=== PATIENT | male | born 1945 | race Caucasian/White ===

== ENCOUNTER 2017-06-04 13:53 | Emergency (ER) | payer MEDICARE ==
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
[2017-06-04] MEDS ORDERED: SODIUM CHLORIDE 0.9% 1,000 ML IV STA (14:14)
[2017-06-04] MEDS ORDERED: SODIUM CHLORIDE 0.9% 500 ML IV STA (14:14)
[2017-06-04 14:22] VITALS: RESP 18
[2017-06-04 14:42] LABS: Basophils # (A) 0.1 k/uL (0-0.2); Basophils % (A) 1 %; CH 32.2; CHCM 35.5; Eosinophils # (A) 0.2 k/uL (0-0.7); Eosinophils % (A) 2 %; HCT 42.4 % (39.0-53.0); HDW 2.72; HGB 14.9 gm/dL (13.0-17.5); Luc # (Auto) 0.18; Luc % (Auto) 2; Lymphocytes # (A) 2.4 k/uL (1.0-4.8); Lymphocytes % (A) 26 %; MCHC 35.1 g/dL (31.0-37.0); MCV 91.2 fL (80.0-100.0); Mean Platelet Volume 7.9; Monocytes # (A) 0.6 k/uL (0-1.0); Monocytes % (A) 6 %; Neutrophils # (A) 5.9 k/uL (1.3-7.7); Neutrophils % (A) 63 %; RBC 4.65 m/uL (4.30-5.90); RDW 13.8 % (11.5-15.5); WBC 9.4 k/uL (3.8-10.6); WBC (Perox) 9.12
[2017-06-04 14:52] LABS: Prothrombin Time 10.1 sec (9.0-12.0)
[2017-06-04 14:59] LABS: ALT 20 U/L (21-72); AST 19 U/L (17-59); Alkaline Phosphatase 80 U/L (38-126); Anion Gap 11 mmol/L; Blood Urea Nitrogen 27 mg/dL (9-20); Calcium 9.5 mg/dL (8.4-10.2); Carbon Dioxide 25 mmol/L (22-30); Chloride 106 mmol/L (98-107); Glucose 132 mg/dL (74-99); Non-African American GFR(MDRD) >60 (>60 ml/min/1.73 sqM); Potassium 4.5 mmol/L (3.5-5.1); Sodium 142 mmol/L (137-145); Total Bilirubin 0.6 mg/dL (0.2-1.3); Total Protein 7.3 g/dL (6.3-8.2)
[2017-06-04 15:01] LABS: Creatine Kinase 20 U/L (55-170)
--- NOTE | 2017-06-04 15:02 | XR ---
EXAMINATION TYPE: XR chest 2V DATE OF EXAM: 06/04/2017 COMPARISON: 08/04/2014 HISTORY: Shortness of breath TECHNIQUE: Frontal and lateral views of the chest are obtained. FINDINGS: Scattered senescent parenchymal changes noted. Hyperinflation compatible with COPD. No evidence for infiltrate. No evidence for atelectasis. Heart size is stable. Mediastinal structures are stable and grossly unremarkable. No evidence for hilar prominence. Degenerative changes dorsal spine. IMPRESSION: 1. No evidence for acute pulmonary disease.
[2017-06-04 15:09] VITALS: BP 174/88; PULSE 59; TEMP 97.4
[2017-06-04 15:14] LABS: Creatine Kinase MB 0.7 ng/mL (0.0-2.4); Troponin I <0.012 ng/mL (0.000-0.034)
== END 2017-06-04 16:22 | disposition home or self-care (01) ==
LOC: EC 13:53
DX: R55 Syncope and collapse (principal); E11.9 Type 2 diabetes mellitus without complications; I10 Essential (primary) hypertension; E78.5 Hyperlipidemia, unspecified; F32.9 Major depressive disorder, single episode, unspecified; Z87.891 Personal history of nicotine dependence; Z79.1 Long term (current) use of non-steroidal anti-inflammatories (NSAID); Z79.84 Long term (current) use of oral hypoglycemic drugs; Z79.899 Other long term (current) drug therapy; Z88.1 Allergy status to other antibiotic agents
CPT/HCPCS: 36415; 71020; 80053; 82550; 82553; 84484; 85025; 85610; 85730; 93005; 96360; 96361; 99285

== ENCOUNTER 2018-01-21 08:50 | Inpatient (IN) | payer OTHER, MEDICARE ==
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
[2018-01-21] MEDS ORDERED: ACETAMINOPHEN IV (For NPO) 1,000 MG in EMPTY BAG 1 BAG IVPB STA (09:18)
[2018-01-21 09:37] LABS: Basophils % (A) 0 %; Eosinophils # (A) 0.1 k/uL (0-0.7); Eosinophils % (A) 1 %; HCT 39.9 % (39.0-53.0); HGB 13.4 gm/dL (13.0-17.5); Lymphocytes # (A) 0.7 k/uL (1.0-4.8); Lymphocytes % (A) 6 %; MCH 32.8 pg (25.0-35.0); MCHC 33.6 g/dL (31.0-37.0); MCV 97.7 fL (80.0-100.0); Mean Platelet Volume 8.7; Monocytes # (A) 0.4 k/uL (0-1.0); Monocytes % (A) 3 %; Neutrophils # (A) 10.5 k/uL (1.3-7.7); Neutrophils % (A) 88 %; Platelet Count 397 k/uL (150-450); RBC 4.09 m/uL (4.30-5.90); RDW 14.7 % (11.5-15.5)
[2018-01-21 09:50] LABS: Albumin 3.5 g/dL (3.5-5.0); Amylase 39 U/L (30-110); Anion Gap 16 mmol/L; Calcium 9.4 mg/dL (8.4-10.2); Carbon Dioxide 17 mmol/L (22-30); Chloride 107 mmol/L (98-107); Glucose 178 mg/dL (74-99); Lipase 50 U/L (23-300); Sodium 140 mmol/L (137-145); Total Bilirubin 10.1 mg/dL (0.2-1.3); Total Protein 7.1 g/dL (6.3-8.2)
[2018-01-21 09:51] LABS: Potassium 5.1 mmol/L (3.5-5.1)
--- NOTE | 2018-01-21 09:51 | XR ---
EXAMINATION TYPE: XR chest 2V DATE OF EXAM: 01/21/2018 COMPARISON: 06/04/2017 HISTORY: 72-year-old male for fever TECHNIQUE: AP and lateral views FINDINGS: The cardiomediastinal silhouette, aorta, and pulmonary vasculature are within normal limits. Strandy atelectasis in the lower lungs. No consolidation or pleural effusion. Stable focal high density mater ial projecting over the medial left clavicle, either small retained foreign body or external artifact . IMPRESSION: No acute cardiopulmonary process.
[2018-01-21 09:52] LABS: ALT 381 U/L (21-72); AST 462 U/L (17-59); Alkaline Phosphatase 1023 U/L (38-126); Blood Urea Nitrogen 27 mg/dL (9-20)
--- NOTE | 2018-01-21 09:53 | XR ---
EXAMINATION TYPE: XR abdomen 1V DATE OF EXAM: 01/21/2018 CLINICAL DATA: 72-year-old male with pain and fever, jaundice, PHH COMPARISON: None FINDINGS: Supine imaging limited for assessment of free intraperitoneal air. There is some gaseous central small bowel loops. A couple loops are borderline to mildly dilated at 3 .2 cm. Scattered colonic air is present extending distally into the rectum. Left-sided pelvic phleboliths. IMPRESSION: 1. Gassy central bowel loops. A couple small bowel loops are borderline to mildly dilated at 3.2 cm. This could reflect a regional ileus or enteritis. 2. Overall bowel gas pattern is nonobstructive at this time. Short interval follow-up can be consider ed.
[2018-01-21] MEDS ORDERED: SODIUM CHLORIDE 0.9% 1,000 ML IV STA ×2 (10:00→10:03)
[2018-01-21] MEDS ORDERED: SODIUM CHLORIDE 0.9% 500 ML IV STA (10:03)
[2018-01-21 10:10] LABS: INR 1.1 (<1.2); Partial Thromboplastin Time 22.2 sec (22.0-30.0); Prothrombin Time 10.4 sec (9.0-12.0)
--- NOTE | 2018-01-21 10:18 | US ---
EXAMINATION TYPE: US gallbladder DATE OF EXAM: 01/21/2018 COMPARISON: NONE CLINICAL HISTORY: 72-year-old male Jaundice, fever, evaluate pancreas also. Technique: Multiple sonographic images of the right upper quadrant are obtained. FINDINGS: Liver Length: 15.0cm Gallbladder: not seen CBD: 1.2 cm Right Kidney: 11.5 x 7.0 x 6.7 cm Pancreas: Obscured by bowel gas Liver: Very limited intercostal views. Gallbladder: not seen; patient not sure if he had surgery Evidence for sonographic Jauregui's sign: no CBD: Dilated Right Kidney: No hydronephrosis IMPRESSION: 1. The pancreas is obscured due to shadowing from bowel gas. 2. Very limited, intercostal views of the liver. 3. Gallbladder could not be visualized. Patient is unsure if they have had prior cholecystectomy. 4. Dilated bile duct at 1.2 cm. Correlate with alkaline phosphatase and bilirubin levels to evaluate for possible biliary obstruction. ERCP or MRCP evaluation as clinically indicated.
[2018-01-21 10:42] LABS: Appearance,Urine Clear (Clear); Bilirubin,Urine 3+ (Negative); Blood,Urine Negative (Negative); Color,Urine Dark Brown; Glucose,Urine (UA) Negative (Negative); Ketones,Urine Negative (Negative); Leukocyte Esterase,Urine Negative (Negative); Nitrite,Urine Negative (Negative); PH, Urine 6.5 (5.0-8.0); Protein,Urine Trace (Negative); Specific Gravity,Urine 1.021 (1.001-1.035); Urobilinogen,Urine >12.0 mg/dL (<2.0)
[2018-01-21] MEDS ORDERED: AMPICILLIN-SULBACTAM 3 GM in SODIUM CHLORIDE 0.9% 100 ML IVPB STA (10:50)
[2018-01-21] MEDS ORDERED: NALOXONE 0.4 MG/ML 1 ML VIAL IV PRN (10:52)
[2018-01-21] MEDS ORDERED: HYDROmorphone 0.5 MG/0.5 ML SYRINGE IVP PRN (10:52)
[2018-01-21] MEDS ORDERED: ONDANSETRON 4 MG/2 ML VIAL IVP PRN (10:52)
[2018-01-21] MEDS ORDERED: RX INFO: IV CONTRAST WAS GIVEN 1 EACH MISC MISCELLANE PRN (10:52)
--- NOTE | 2018-01-21 11:40 | CT ---
EXAMINATION TYPE: CT abdomen pelvis w con DATE OF EXAM: 01/21/2018 COMPARISON: NONE INDICATION: Generalized pain with jaundice DLP: 1263.8 mGycm, Automated exposure control for dose reduction was used. CONTRAST: 100 mL of Omnipaque 300. Study performed without Oral Contrast TECHNIQUE: Axial images were obtained from above the diaphragm to the pubic rami in the axial plane a t 5 mm thick sections. Reconstructed images are reviewed on the computer in the coronal plane. FINDINGS: Limited CT sections are obtained the lung bases. The lung bases are clear. Coronary artery calcific ation is present. CT ABDOMEN: Liver: Normal. No intrahepatic biliary dilatation is evident. The common bile duct appears normal. Spleen: Normal Pancreas: Atrophic Adrenal glands: The adrenal glands are normal. Gallbladder: Contracted, possibly postsurgical. Kidneys: No masses are evident. No hydronephrosis is present. No cysts are present. Delayed images were obtained through the kidneys, which remain unremarkable. Aorta: Vascular calcification is within the aorta. Inferior vena cava: Normal. CT PELVIS: Loops of bowel within the abdomen and pelvis are normal. There are loops of bowel which are incom pletely distended or lack oral contrast limiting their evaluation. Diverticular changes are within th e sigmoid colon. Appendix: Not identified. No suspicious inflammatory changes or dilated tubular structures or. Urinary bladder: Normal. Genitourinary structures: Prostate is unremarkable. Osseous structures: No suspicious lytic or sclerotic lesions. Facet changes are within the lower lumb ar spine especially on the right at L5-S1. IMPRESSIONS: 1. No acute abdominal process.
[2018-01-21] MEDS: SODIUM CHLORIDE 0.9% 1,000 ML IV SCH ×2 (12:06→18:04)
[2018-01-21 15:28] VITALS: BMI 25.5
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
[2018-01-21 17:45] LABS: Hepatitis A Antibody IgM Non-Reactive (Non-Reactive); Hepatitis B Core IgM Non-Reactive (Non-Reactive)
[2018-01-21] MEDS: AMPICILLIN-SULBACTAM 3 GM in SODIUM CHLORIDE 0.9% 100 ML IVPB SCH (18:04)
[2018-01-21] MEDS: BUDESONIDE 0.5 MG/2 ML NEBU INHALATION SCH (19:52)
[2018-01-21] MEDS: TAMSULOSIN 0.4 MG CAP.ER.24H PO SCH (21:40)
[2018-01-21] MEDS: buPROPion 100 MG TAB PO SCH (21:40)
[2018-01-22] MEDS: AMPICILLIN-SULBACTAM 3 GM in SODIUM CHLORIDE 0.9% 100 ML IVPB SCH ×3 (03:18→20:00)
[2018-01-22] MEDS: SODIUM CHLORIDE 0.9% 1,000 ML IV SCH ×3 (03:21→20:05)
[2018-01-22] MEDS: LEVOTHYROXINE 50 MCG TAB PO SCH ×2 (05:54→06:21)
[2018-01-22] MEDS: BUDESONIDE 0.5 MG/2 ML NEBU INHALATION SCH ×2 (07:13→20:07)
[2018-01-22] MEDS: ATENOLOL 50 MG TAB PO SCH (08:04)
[2018-01-22] MEDS: FINASTERIDE 5 MG TAB PO SCH (08:05)
[2018-01-22] MEDS: buPROPion 100 MG TAB PO SCH ×2 (08:05→20:01)
[2018-01-22] MEDS: PANTOPRAZOLE 40 MG/10 ML VIAL IV SCH (08:05)
[2018-01-22] MEDS: ARTIFICIAL TEARS-HYPROMELLOSE DROPS 15 ML BTL BOTH EYES SCH (08:06)
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
[2018-01-22] MEDS: HYDROmorphone 0.5 MG/0.5 ML SYRINGE IVP PRN (10:24)
[2018-01-22 13:15] LABS: Cancer Antigen 19-9 53.7 U/mL (0.0-34.9)
[2018-01-22] MEDS ORDERED: LEVOFLOXACIN 500MG-D5W PMX 500 MG in DEXTROSE/WATER 1 100ML.BAG IVPB ONE (15:00)
[2018-01-22] MEDS ORDERED: INDOMETHACIN 50MG SUPPOSITORY RECTAL ONE (15:00)
--- NOTE | 2018-01-22 15:05 | P.PN ---
Subjective 72-year-old gentleman admitted for ascending cholangitis and patient will undergo ERCP today. His abdominal pain is better. Constitutional: Denied any fatigue denied any fever. Cardio vascular: denied any chest pain, palpitations Gastrointestinal abdominal pain did improve Pulmonary: Denied any shortness of breath cough Neurologic denied any new focal deficits Objective - Vital Signs Vital signs: Vital Signs Temp 97.7 F 01/22/18 05:44 Pulse 70 01/22/18 05:44 Resp 14 01/22/18 05:44 BP 122/62 01/22/18 05:44 Pulse Ox 98 01/22/18 05:44 Intake & Output 01/21/18 01/22/18 01/22/18 18:59 06:59 18:59 Intake Total 375 4700 Balance 375 4700 Weight 78.5 kg Intake: IV 375 1000 Sodium Chloride 0.9% 1, 375 1000 000 ml @ 125 mls/hr IV . Q8H [facility] Rx#:[id number] Intake, IV Titration 3600 Amount Ampicillin-Sulbactam 3 gm 100 In Sodium Chloride 0.9% 100 ml @ 100 mls/hr IVPB ONCE [facility] Rx#:[id number] Ampicillin-Sulbactam 3 gm 100 In Sodium Chloride 0.9% 100 ml @ 100 mls/hr IVPB Q8H [facility] Rx#:[id number] Sodium Chloride 0.9% 1, 400 000 ml @ 999 mls/hr IV . Q1H1M [facility] Rx#:[id number] Sodium Chloride 0.9% 500 3000 ml @ 999 mls/hr IV .Q31M [facility] Rx#:[id number] Oral 100 Other: # Voids 2 - Exam PHYSICAL EXAMINATION: GENERAL: The patient is alert and oriented x3, not in any acute distress. Well developed, well nourished. Alert is discoloration of the skin HEENT: Pupils are round and equally reacting to light. EOMI. scleral icterus was present. No conjunctival pallor. Normocephalic, atraumatic. No pharyngeal erythema. No thyromegaly. CARDIOVASCULAR: S1 and S2 present. No murmurs, rubs, or gallops. PULMONARY: Chest is clear to auscultation, no wheezing or crackles. ABDOMEN: Soft, nontender, nondistended, normoactive bowel sounds. No palpable organomegaly. MUSCULOSKELETAL: No joint swelling or deformity. EXTREMITIES: No cyanosis, clubbing, or pedal edema. NEUROLOGICAL: Gross neurological examination did not reveal any focal deficits. SKIN: No rashes. - Labs CBC & Chem 7: 01/21/18 09:15 01/21/18 09:15 Labs: Abnormal Lab Results - Last 24 Hours (Table) 01/21/18 Range/Units 09:15 CA 19-9 Antigen 53.7 H (0.0-34.9) U/mL Microbiology - Last 24 Hours (Table) 01/21/18 10:28 Urine Culture - Final Urine,Clean Catch 01/21/18 09:15 Blood Culture - Preliminary Blood No Growth after 24 hours Assessment and Plan Plan: -Sepsis: Secondary to possible ascending cholangitis and biliary sepsis with elevated lactic acid patient is receiving IV fluids patient is on Unasyn which will be continued ERCP today. Gallbladder was not visualized on the ultrasound and patient had history of significant fibrosis in the abdomen along with the abscess in the gallbladder in the past at the time cholecystectomy was not done patient was consulted and managed at the time. -Obstructive jaundice -Type 2 diabetes mellitus: Will can use sliding scale insulin and Januvia will be held -Hypertension -Hyperlipidemia -Gastroesophageal reflux disease For above-mentioned chronic medical problems patient will be resumed on appropriate home medications
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
[2018-01-22] MEDS ORDERED: PIPERACILLIN-TAZOBACTAM 3.375 GM in DEXTROSE/WATER 1 50ML.BAG IVPB SCH (16:00)
[2018-01-22] MEDS ORDERED: PROPOFOL 10 MG/ML 20 ML VIAL IV ONE (18:14)
[2018-01-22] MEDS ORDERED: IV FLUID CONTINUATION 1,000 ML IV ONE (18:25)
[2018-01-22] MEDS ORDERED: IOHEXOL 300 MG/ML 50 ML BOTTLE MISCELLANE ONE (19:00)
--- NOTE | 2018-01-22 19:01 | P.PCN ---
Date of Procedure: 01/22/18 Procedure(s) Performed: Procedure: Endoscopic retrograde cholangiography with sphincterotomy and extraction of common bile duct stone using the 11.5 mm balloon catheter. Preoperative diagnosis: Obstructive jaundice. Postoperative diagnosis: 1. Dilated common bile duct with a filling defect consistent with common bile duct stone. 2. Successful sphincterotomy and extraction of the common bile duct stone using the 11.5 mm balloon catheter. Preparation sedation: Was provided by anesthesia. Brief clinical history: the patient is a 72-year-old male with a history of major depressive disorder/hallucinations, diet controlled diabetes mellitus, hypertension, hyperlipidemia, and GERD, presented with a five-day history of upper abdominal midepigastric pain fever T-max 101.4, with dark colored urine and new onset of jaundice. Hepatitis screen negative. Reports an unintentional 15 pound weight loss over the last month secondary to decreased appetite. No history of jaundice, alcoholism or changes in medications. Upon review of operative notes from the [facility] in 2016 it appears he was admitted with acute hepatic gallbladder fossa abscess, not contiguous with each other, cholecystitis and underwent exploratory laparoscopy converted to open with intraoperative findings of abdominal adhesions adherent to the gallbladder , stomach, and colon with insertion of cholecystotomy tube and JARED drain. Unsure if patient has a history of cholelithiasis. Admission white count 12. Hemoglobin 13.4. MCV 97. Platelets 397. INR 1.1. BUN 27. Creatinine 0.9. Lactic acid 2.6 with hydration improved to 1.1. Total bilirubin 10.1. AST 462. ALT 381. Alkaline phosphatase 1023. Lipase 50. Influenza screen not detected. Ultrasound abdomen was very limited pancreas is obscured due to shadowing bowel gas. Gallbladder could not be visualized. Dilated bile duct at 1.[address] abdomen and pelvis reported no acute findings. No mentioning of intra-or extrahepatic biliary dilatation. Gallbladder appeared contracted. The details are summarized in the history and physical and dictated consultations and progress notes. Procedure: With the patient in the prone position and after informed consent and adequate sedation, I passed the Olympus video duodenoscope down the esophagus into the stomach. The endoscope was then passed through the pylorus into the duodenum and the papilla appeared into view. The papilla appeared expanded. Initial cannulation and injection with dye resulted in opacification of the biliary tree. The common bile duct was dilated and there was a filling defect consistent with his common bile duct stone. I proceeded to exchange the catheter 40 sphincterotome over a guidewire and performed adequate sphincterotomy. After that and 11.5 mm balloon catheter was used and was inflated in the proximal common bile duct and withdrawn fully inflated, thus delivering the common bile duct stone. The patient tolerated the procedure well. Plan: Will allow clear liquid diet and monitor closely for any possible complications and advance his diet further based on his course tomorrow.
[2018-01-22] MEDS: TAMSULOSIN 0.4 MG CAP.ER.24H PO SCH (20:01)
[2018-01-23] MEDS: SODIUM CHLORIDE 0.9% 1,000 ML IV SCH ×3 (03:55→20:38)
[2018-01-23] MEDS: AMPICILLIN-SULBACTAM 3 GM in SODIUM CHLORIDE 0.9% 100 ML IVPB SCH ×3 (03:55→20:38)
[2018-01-23] MEDS: LEVOTHYROXINE 50 MCG TAB PO SCH (05:45)
[2018-01-23] MEDS: PANTOPRAZOLE 40 MG/10 ML VIAL IV SCH (08:10)
[2018-01-23] MEDS: buPROPion 100 MG TAB PO SCH ×2 (08:10→20:38)
[2018-01-23] MEDS: FINASTERIDE 5 MG TAB PO SCH (08:11)
[2018-01-23] MEDS: ATENOLOL 50 MG TAB PO SCH (08:11)
[2018-01-23] MEDS: ASPIRIN 81 MG PO SCH (08:11)
[2018-01-23] MEDS: BUDESONIDE 0.5 MG/2 ML NEBU INHALATION SCH ×2 (08:45→19:46)
[2018-01-23] MEDS: ARTIFICIAL TEARS-HYPROMELLOSE DROPS 15 ML BTL BOTH EYES SCH (08:45)
--- NOTE | 2018-01-23 10:21 | P.PN ---
Subjective 72-year-old gentleman admitted for ascending cholangitis and patient will undergo ERCP today. His abdominal pain is better. 01/23/2018 Patient underwent ERCP and extraction of common bile duct stone along with sphincterotomy I do not have any repeat compresses metabolic profile which will be ordered today Constitutional: Denied any fatigue denied any fever. Cardio vascular: denied any chest pain, palpitations Gastrointestinal abdominal pain did improve Pulmonary: Denied any shortness of breath cough Neurologic denied any new focal deficits Objective - Vital Signs Vital signs: Vital Signs Temp 96.7 F L 01/23/18 07:00 Pulse 69 01/23/18 07:00 Resp 16 01/23/18 07:00 BP 139/71 01/23/18 07:00 Pulse Ox 99 01/23/18 07:00 Intake & Output 01/22/18 01/23/18 01/23/18 18:59 06:59 18:59 Intake Total 350 Balance 350 Intake: IV 350 Other: # Voids 1 1 - Exam PHYSICAL EXAMINATION: GENERAL: The patient is alert and oriented x3, not in any acute distress. Well developed, well nourished. Alert is discoloration of the skin HEENT: Pupils are round and equally reacting to light. EOMI. scleral icterus was present. No conjunctival pallor. Normocephalic, atraumatic. No pharyngeal erythema. No thyromegaly. CARDIOVASCULAR: S1 and S2 present. No murmurs, rubs, or gallops. PULMONARY: Chest is clear to auscultation, no wheezing or crackles. ABDOMEN: Soft, nontender, nondistended, normoactive bowel sounds. No palpable organomegaly. MUSCULOSKELETAL: No joint swelling or deformity. EXTREMITIES: No cyanosis, clubbing, or pedal edema. NEUROLOGICAL: Gross neurological examination did not reveal any focal deficits. SKIN: No rashes. - Labs CBC & Chem 7: 01/21/18 09:15 01/21/18 09:15 Labs: Abnormal Lab Results - Last 24 Hours (Table) 01/21/18 Range/Units 09:15 CA 19-9 Antigen 53.7 H (0.0-34.9) U/mL Microbiology - Last 24 Hours (Table) 01/21/18 10:28 Urine Culture - Final Urine,Clean Catch 01/21/18 09:15 Blood Culture - Preliminary Blood No Growth after 24 hours Assessment and Plan Plan: -Sepsis: Secondary to possible ascending cholangitis and biliary sepsis with elevated lactic acid on admission which is better now patient is receiving IV fluids patient is on Unasyn which will be continued ERCP yesterday with the extraction of common bile that stone with sphincterotomy repeat compresses metabolic profile will be obtained. Gallbladder was not visualized on the ultrasound and patient had history of significant fibrosis in the abdomen along with the abscess in the gallbladder in the past at the time cholecystectomy was not done patient was consulted and managed at the time. -Obstructive jaundice -Type 2 diabetes mellitus: Will can use sliding scale insulin and Januvia will be held -Hypertension -Hyperlipidemia -Gastroesophageal reflux disease For above-mentioned chronic medical problems patient will be resumed on appropriate home medications
[2018-01-23 11:09] LABS: HCT 33.6 % (39.0-53.0); HGB 10.7 gm/dL (13.0-17.5); MCH 32.6 pg (25.0-35.0); MCHC 31.7 g/dL (31.0-37.0); Macrocytosis Slight; Mean Platelet Volume 8.3; Platelet Count 243 k/uL (150-450); RBC 3.26 m/uL (4.30-5.90); RDW 14.7 % (11.5-15.5); WBC 8.9 k/uL (3.8-10.6)
[2018-01-23 11:13] LABS: MCV 103.1 fL (80.0-100.0)
[2018-01-23 11:14] LABS: ALT 266 U/L (21-72); AST 309 U/L (17-59); Albumin 2.4 g/dL (3.5-5.0); Alkaline Phosphatase 602 U/L (38-126); Anion Gap 11 mmol/L; Blood Urea Nitrogen 14 mg/dL (9-20); Calcium 8.3 mg/dL (8.4-10.2); Carbon Dioxide 22 mmol/L (22-30); Chloride 109 mmol/L (98-107); Glucose 86 mg/dL (74-99); Potassium 3.6 mmol/L (3.5-5.1); Sodium 142 mmol/L (137-145); Total Bilirubin 11.6 mg/dL (0.2-1.3); Total Protein 5.1 g/dL (6.3-8.2)
--- NOTE | 2018-01-23 12:29 | P.PN ---
Subjective Progress Note Date: 01/23/18 Principal diagnosis: Choledocholithiasis Patient doing well today. Denies abdominal pain. Labs are improving. He ERCP yesterday revealed a common duct stone was retrieved. Objective - Vital Signs Vital signs: Vital Signs Temp 96.7 F L 01/23/18 07:00 Pulse 69 01/23/18 07:00 Resp 16 01/23/18 07:00 BP 139/71 01/23/18 07:00 Pulse Ox 99 01/23/18 07:00 Intake & Output 01/22/18 01/23/18 01/23/18 18:59 06:59 18:59 Intake Total 350 Balance 350 Intake: IV 350 Other: # Voids 1 1 - Exam Abdomen: Soft, nondistended, nontender - Labs CBC & Chem 7: 01/23/18 10:34 01/23/18 10:34 Labs: Abnormal Lab Results - Last 24 Hours (Table) 01/21/18 01/23/18 01/23/18 Range/Units 09:15 10:34 10:34 RBC 3.26 L (4.30-5.90) m/uL Hgb 10.7 L (13.0-17.5) gm/dL Hct 33.6 L (39.0-53.0) % MCV 103.1 H D (80.0-100.0) fL Chloride 109 H (98-107) mmol/L Creatinine 0.65 L (0.66-1.25) mg/dL Calcium 8.3 L (8.4-10.2) mg/dL Total Bilirubin 11.6 H (0.2-1.3) mg/dL AST 309 H (17-59) U/L ALT 266 H (21-72) U/L Alkaline Phosphatase 602 H (38-126) U/L Total Protein 5.1 L (6.3-8.2) g/dL Albumin 2.4 L (3.5-5.0) g/dL CA 19-9 Antigen 53.7 H (0.0-34.9) U/mL Microbiology - Last 24 Hours (Table) 01/21/18 09:15 Blood Culture - Preliminary Blood No Growth after 48 hours 01/21/18 10:28 Urine Culture - Final Urine,Clean Catch Assessment and Plan (1) Abdominal pain Narrative/Plan: Patient with choledocholithiasis. Looking at the ultrasound and CAT scan I am not convinced that cholecystectomy will result in significant benefit to this patient given the anticipated adhesions in the likelihood that there is no significant cholelithiasis. Continue to monitor liver enzymes. No surgical intervention planned at this time. We'll sign off. Please contact if needed. Current Visit: Yes Status: Acute Code(s): R10.9 - UNSPECIFIED ABDOMINAL PAIN SNOMED Code(s): 46917717
[2018-01-23] MEDS: HYDROmorphone 0.5 MG/0.5 ML SYRINGE IVP PRN (12:35)
--- NOTE | 2018-01-23 13:47 | FL ---
EXAMINATION TYPE: FL ERCP biliary duct only DATE OF EXAM: 01/22/2018 CLINICAL HISTORY: CBD stone TECHNIQUE: Fluoroscopy. COMPARISON: CT abdomen and pelvis from yesterday. FINDINGS: Fluoroscopic guidance was provided during ERCP procedure performed by Dr Rojo. A total of 1 minute 50 seconds of fluoroscopic time was utilized during the procedure and 1 spot intraoperative image is acquired. Single image acquired shows catheterization of the biliary system centrally with mild to moderate central biliary prominence. Please refer to procedure note for further details as I was not present nor performed procedure. IMPRESSION: As Above.
[2018-01-23] MEDS: TAMSULOSIN 0.4 MG CAP.ER.24H PO SCH (20:38)
[2018-01-24] MEDS: AMPICILLIN-SULBACTAM 3 GM in SODIUM CHLORIDE 0.9% 100 ML IVPB SCH ×3 (04:17→21:39)
[2018-01-24] MEDS: SODIUM CHLORIDE 0.9% 1,000 ML IV SCH ×5 (06:03→21:38)
[2018-01-24] MEDS: LEVOTHYROXINE 50 MCG TAB PO SCH (06:04)
[2018-01-24] MEDS: BUDESONIDE 0.5 MG/2 ML NEBU INHALATION SCH ×2 (07:15→19:17)
[2018-01-24 07:21] VITALS: RESP 18
[2018-01-24] MEDS: ARTIFICIAL TEARS-HYPROMELLOSE DROPS 15 ML BTL BOTH EYES SCH (08:05)
[2018-01-24] MEDS: ASPIRIN 81 MG PO SCH (08:06)
[2018-01-24] MEDS: PANTOPRAZOLE 40 MG TABLET PO SCH (08:06)
[2018-01-24] MEDS: ATENOLOL 50 MG TAB PO SCH (08:06)
[2018-01-24] MEDS: buPROPion 100 MG TAB PO SCH ×2 (08:06→21:39)
[2018-01-24] MEDS: FINASTERIDE 5 MG TAB PO SCH (08:06)
[2018-01-24 08:37] LABS: ALT 292 U/L (21-72); AST 346 U/L (17-59); Albumin 2.5 g/dL (3.5-5.0); Alkaline Phosphatase 687 U/L (38-126); Anion Gap 11 mmol/L; Blood Urea Nitrogen 11 mg/dL (9-20); Calcium 8.3 mg/dL (8.4-10.2); Carbon Dioxide 21 mmol/L (22-30); Chloride 108 mmol/L (98-107); Glucose 101 mg/dL (74-99); Potassium 3.9 mmol/L (3.5-5.1); Sodium 140 mmol/L (137-145); Total Bilirubin 12.4 mg/dL (0.2-1.3); Total Protein 5.2 g/dL (6.3-8.2)
[2018-01-24 08:41] LABS: HCT 35.3 % (39.0-53.0); HGB 10.8 gm/dL (13.0-17.5); Hypochromasia Slight; MCH 32.4 pg (25.0-35.0); MCHC 30.7 g/dL (31.0-37.0); MCV 105.8 fL (80.0-100.0); Macrocytosis Moderate; Mean Platelet Volume 8.4; Platelet Count 268 k/uL (150-450); RBC 3.34 m/uL (4.30-5.90); RDW 14.4 % (11.5-15.5); WBC 8.6 k/uL (3.8-10.6)
[2018-01-24] MEDS: HYDROmorphone 0.5 MG/0.5 ML SYRINGE IVP PRN (09:54)
[2018-01-24] MEDS ORDERED: HYDROmorphone 2 MG TAB PO PRN (11:03)
[2018-01-24] MEDS ORDERED: HYDROmorphone 4 MG TABLET PO PRN (11:04)
[2018-01-24 14:40] LABS: INR 1.2 (<1.2); Prothrombin Time 11.8 sec (9.0-12.0)
[2018-01-24 15:03] LABS: Amylase 32 U/L (30-110); Lipase 35 U/L (23-300)
--- NOTE | 2018-01-24 15:09 | XR ---
EXAMINATION TYPE: XR chest 1V DATE OF EXAM: 01/24/2018 COMPARISON: 01/21/2018 HISTORY: Cough TECHNIQUE: Single frontal view of the chest is obtained. FINDINGS: There is no focal air space opacity, pleural effusion, or pneumothorax seen. Copious soft tissues partially of the left costophrenic angle. The cardiac silhouette size is upper limits of norm al. The osseous structures are intact. Mild acromio clavicular arthropathy is seen bilaterally. Mil d degenerative changes of the thoracic spine are also noted. IMPRESSION: No acute cardiopulmonary process.
--- NOTE | 2018-01-24 16:12 | PN ---
PROGRESS NOTE DATE OF SERVICE: 01/24/2018 This 72-year-old gentleman admitted with obstructive jaundice had ERCP and sphincterotomy and as well as extraction of the CBD stones. The patient had ultrasound of the gallbladder. Multiple consultants are following the patient closely including gastroenterology and surgery as well. The patient is also complaining of hacking cough. The bilirubin is still elevated 12.4. Liver enzymes are showing some down trends at this time. Patient has continued to be jaundice. Patient is on broad- spectrum IV antibiotics at this time. PAST MEDICAL HISTORY: Reviewed. REVIEW OF SYSTEMS: CARDIOVASCULAR: No angina or palpitations. RESPIRATORY: Mentioned earlier. GI: As mentioned earlier. : No dysuria. NERVOUS SYSTEM: No numbness or weakness. MEDICATIONS: Current medications are reviewed include: 1. Unasyn 3 g IV q.8h. 2. Artificial Tears. 3. Aspirin 81 mg. 4. Tenormin 50 mg b.i.d. 5. Pulmicort 0.5 b.i.d. 6. Wellbutrin 100 mg p.o. b.i.d. 7. Proscar 5 mg p.o. daily. 8. Robitussin 200 mg q.6h p.r.n. 9. Dilaudid 4 mg p.o. q.3. 10.Synthroid 50 mcg p.o. daily. 11.Narcan 0.2 q.2h p.r.n. 12.Zofran p.r.n. 13.Protonix 40 mg daily. 14.Flomax. PHYSICAL EXAM: Patient is alert, oriented x3. Pulse 72, blood pressure 120/70, respiration 18, temperature 98.9, pulse ox 97% on room air. HEENT: Conjunctivae icteric. Oral mucosa moist. NECK: No jugular venous distention. No carotid bruit. No lymph node enlargement. CARDIOVASCULAR: S1, S2. No S3, no S4. RESPIRATORY: Breath sounds diminished in the bases. A few scattered rhonchi. No crackles. ABDOMEN: Soft. Mild diffuse discomfort. No guarding. No rigidity. No mass palpable. LEGS: No edema. NERVOUS SYSTEM: Higher function as mentioned. Moves all four limbs. No focal motor deficits. LYMPHATICS: No lymphadenopathy in the neck, axillae, groin. SKIN: No ulcer, rash or bleeding. LABS: WBC 8.2, hemoglobin 10.2, sodium 140, potassium 3.9. Total bilirubin is 2.4, other labs are noted. ASSESSMENT: 1. Obstructive jaundice, possibly secondary to choledocholithiasis status post ERCP and stone extraction. 2. Possible cholangitis with sepsis present on admission. 3. Diabetes mellitus type 2. 4. Hypertension. 5. Hyperlipidemia. 6. History of degenerative joint disease. 7. Increased bilirubin. 8. Increased AST, ALT, alkaline phosphatase. 9. Anemia macrocytic. RECOMMENDATIONS AND DISCUSSION This 72-year-old gentleman who presented with multiple complex medical issues, will monitor the patient closely. Continue the current management and symptomatic treatment. Otherwise at this time I recommend repeat labs. Continue the broad-spectrum IV antibiotics. Chest x-ray for evaluation of the cough. Fluids are being cutdown, the IV fluids. Guarded prognosis because of multiple complex medical issues. Will follow the patient closely with Gastroenterology and Surgery. Discussed with the patient and family who understands and agrees. Further recommendations to follow. MMMISTIL / MYRONN: [id number] /
[2018-01-24] MEDS: guaiFENesin SYRUP 100MG/5ML 200 MG/10 ML CUP PO PRN (19:50)
[2018-01-24] MEDS: TAMSULOSIN 0.4 MG CAP.ER.24H PO SCH (21:39)
[2018-01-25] MEDS: guaiFENesin SYRUP 100MG/5ML 200 MG/10 ML CUP PO PRN ×2 (02:48→09:30)
[2018-01-25] MEDS: AMPICILLIN-SULBACTAM 3 GM in SODIUM CHLORIDE 0.9% 100 ML IVPB SCH ×2 (04:26→12:57)
[2018-01-25 05:51] VITALS: BP 154/94; TEMP 98.5
[2018-01-25] MEDS: LEVOTHYROXINE 50 MCG TAB PO SCH (06:57)
[2018-01-25] MEDS: BUDESONIDE 0.5 MG/2 ML NEBU INHALATION SCH (07:15)
[2018-01-25 07:18] VITALS: PULSE 72
[2018-01-25 08:51] LABS: Basophils # (A) 0.1 k/uL (0-0.2); Basophils % (A) 1 %; Eosinophils # (A) 0.2 k/uL (0-0.7); Eosinophils % (A) 2 %; HCT 34.1 % (39.0-53.0); HGB 10.9 gm/dL (13.0-17.5); Lymphocytes # (A) 1.3 k/uL (1.0-4.8); Lymphocytes % (A) 18 %; MCH 32.3 pg (25.0-35.0); MCHC 31.9 g/dL (31.0-37.0); MCV 101.2 fL (80.0-100.0); Macrocytosis Slight; Monocytes # (A) 0.3 k/uL (0-1.0); Monocytes % (A) 4 %; Neutrophils # (A) 5.2 k/uL (1.3-7.7); Neutrophils % (A) 74 %; Platelet Count 300 k/uL (150-450); RBC 3.37 m/uL (4.30-5.90); RDW 14.8 % (11.5-15.5)
[2018-01-25 08:59] LABS: ALT 280 U/L (21-72); AST 283 U/L (17-59); Albumin 2.7 g/dL (3.5-5.0); Alkaline Phosphatase 718 U/L (38-126); Anion Gap 10 mmol/L; Blood Urea Nitrogen 9 mg/dL (9-20); Calcium 8.4 mg/dL (8.4-10.2); Carbon Dioxide 24 mmol/L (22-30); Chloride 105 mmol/L (98-107); Glucose 124 mg/dL (74-99); Potassium 3.6 mmol/L (3.5-5.1); Sodium 139 mmol/L (137-145); Total Bilirubin 10.8 mg/dL (0.2-1.3); Total Protein 5.4 g/dL (6.3-8.2)
[2018-01-25] MEDS: FINASTERIDE 5 MG TAB PO SCH (09:32)
[2018-01-25] MEDS: ASPIRIN 81 MG PO SCH (09:32)
[2018-01-25] MEDS: ATENOLOL 50 MG TAB PO SCH (09:32)
[2018-01-25] MEDS: buPROPion 100 MG TAB PO SCH (09:32)
[2018-01-25] MEDS: PANTOPRAZOLE 40 MG TABLET PO SCH (09:32)
[2018-01-25] MEDS: ARTIFICIAL TEARS-HYPROMELLOSE DROPS 15 ML BTL BOTH EYES SCH (09:32)
--- NOTE | 2018-01-26 05:55 | DS ---
DISCHARGE SUMMARY DATE OF SERVICE: 01/25/2018. FINAL DIAGNOSES: 1. Obstructive jaundice, possibly secondary to choledocholithiasis, status post ERCP and stone extraction. 2. Possible cholangitis and sepsis, present on admission. 3. Diabetes mellitus type 2. 4. Hypertension. 5. Hyperlipidemia. 6. History of degenerative joint disease. 7. Increased bilirubin. 8. Increased AST, ALT, alkaline phosphatase. 9. Anemia, macrocytic. HISTORY OF PRESENT ILLNESS: This 72-year-old gentleman who presented with multiple complex medical issues had features of obstructive jaundice. The patient underwent ERCP and stone extraction by Dr. Rojo. The patient improved significantly. LFTs are improving at this time. Patient is keen on going home and the patient is cleared for discharge. The patient is also given antibiotics for possible cholangitis. Currently total bilirubin is 10.8, AST 283 and ALT is 280. On exam, vitals are stable. HEENT: Conjunctivae icteric. CARDIOVASCULAR: S1 and S2 muffled. ABDOMEN: Soft. NERVOUS SYSTEM: No focal deficits. DISCHARGE ADVICE: 1. Diet is cardiac. 2. Activity limited until followup. 3. Follow up with Dr. Longoria in 2 to days with CBC, CMP. 4. Follow up with Dr. Rojo as advised. Medications are: 1. Augmentin 875 mg 1 p.o. b.i.d. for 1 week. 2. Aspirin 81 mg p.o. daily. 3. Tenormin 50 mg p.o. daily. 4. Wellbutrin 100 mg p.o. b.i.d. 5. Proscar 5 mg p.o. daily. 6. Aerospan 2 puffs p.r.n. 7. Guaifenesin 200 mg q.6 p.r.n. 8. Synthroid 50 mcg p.o. daily. 9. Mobic 7.5 mg p.r.n. 10.Multivitamins 1 p.o. daily. 11.Prilosec 20 mg b.i.d.; Please hold the Prilosec. 12.Protonix 40 mg b.i.d. 13.Systane 1 drop both eyes. 14.Crestor 20 mg p.o. daily. 15.Onglyza 2.5 mg daily. 16.Fordyce spray. 17.Flomax 0.4 q.h.s. Follow up with Dr. Longoria . ] Once again, the patient will be discharged in a stable condition with guarded prognosis. MMMISTIL / IJN: [id number] / KOURTNEY
== END 2018-01-25 12:55 | disposition home or self-care (01) | DRG 872 ==
LOC: EC 08:50 → 4MS4W 10:52
PROVIDERS: ADMIT Internal Medicine; ATTEND Internal Medicine
PROC: 0FC98ZZ Extirpation of Matter from Common Bile Duct, Via Natural or Artificial Opening Endoscopic (ICD-10-PCS; principal; 2018-01-22 07:30)
DX: A41.9 Sepsis, unspecified organism (principal); E11.9 Type 2 diabetes mellitus without complications; D53.9 Nutritional anemia, unspecified; K80.31 Calculus of bile duct with cholangitis, unspecified, with obstruction; E78.5 Hyperlipidemia, unspecified; E03.9 Hypothyroidism, unspecified; R65.20 Severe sepsis without septic shock; I10 Essential (primary) hypertension; F32.9 Major depressive disorder, single episode, unspecified; K66.0 Peritoneal adhesions (postprocedural) (postinfection); M19.91 Primary osteoarthritis, unspecified site; K21.9 Gastro-esophageal reflux disease without esophagitis; Z79.82 Long term (current) use of aspirin; Z79.84 Long term (current) use of oral hypoglycemic drugs; Z79.1 Long term (current) use of non-steroidal anti-inflammatories (NSAID); Z79.51 Long term (current) use of inhaled steroids; Z79.899 Other long term (current) drug therapy; Z87.19 Personal history of other diseases of the digestive system; Z87.81 Personal history of (healed) traumatic fracture; Z87.891 Personal history of nicotine dependence; Z88.1 Allergy status to other antibiotic agents; Z88.8 Allergy status to other drugs, medicaments and biological substances
CPT/HCPCS: 36415; 43260; 43262; 43264; 71045; 71046; 74018; 74177; 74328; 76705; 80053; 80074; 81003; 82150; 82378; 83605; 83690; 85025; 85027; 85610; 85730; 86301; 87040; 87086; 87502; 94640; 96361; 96365; 96375; 99291

== ENCOUNTER 2018-02-03 14:59 | Emergency (ER) | payer MEDICARE, OTHER ==
[2018-02-03 15:16] VITALS: TEMP 98.3
[2018-02-03] MEDS ORDERED: SODIUM CHLORIDE 0.9% 500 ML IV STA (16:02)
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
[2018-02-03 16:28] LABS: Basophils % (A) 1 %; Eosinophils # (A) 0.2 k/uL (0-0.7); Eosinophils % (A) 3 %; HCT 34.3 % (39.0-53.0); HGB 11.9 gm/dL (13.0-17.5); Lymphocytes # (A) 0.9 k/uL (1.0-4.8); Lymphocytes % (A) 15 %; MCH 34.1 pg (25.0-35.0); MCHC 34.8 g/dL (31.0-37.0); MCV 98.2 fL (80.0-100.0); Mean Platelet Volume 8.6; Monocytes # (A) 0.3 k/uL (0-1.0); Monocytes % (A) 6 %; Neutrophils # (A) 4.3 k/uL (1.3-7.7); Neutrophils % (A) 74 %; Platelet Count 199 k/uL (150-450); RBC 3.49 m/uL (4.30-5.90); WBC 5.8 k/uL (3.8-10.6)
[2018-02-03 16:29] LABS: INR 1.1 (<1.2); Partial Thromboplastin Time 22.2 sec (22.0-30.0); Prothrombin Time 10.3 sec (9.0-12.0)
[2018-02-03 16:37] LABS: ALT 88 U/L (21-72); AST 81 U/L (17-59); Albumin 3.1 g/dL (3.5-5.0); Alkaline Phosphatase 405 U/L (38-126); Anion Gap 10 mmol/L; Blood Urea Nitrogen 23 mg/dL (9-20); Calcium 8.8 mg/dL (8.4-10.2); Carbon Dioxide 25 mmol/L (22-30); Chloride 105 mmol/L (98-107); Glucose 185 mg/dL (74-99); Potassium 4.2 mmol/L (3.5-5.1); Sodium 140 mmol/L (137-145); Total Bilirubin 2.7 mg/dL (0.2-1.3); Total Protein 6.4 g/dL (6.3-8.2)
--- NOTE | 2018-02-03 16:37 | XR ---
EXAMINATION TYPE: XR chest 2V DATE OF EXAM: 02/03/2018 COMPARISON: 01/24/2018 HISTORY: 72-year-old male with syncope TECHNIQUE: AP and lateral views FINDINGS: Heart upper limits of normal in size. Aorta and pulmonary vasculature within normal limits. Stable hi gh density focus projecting at the medial left clavicle, possible retained foreign body material or e xternal artifact. No consolidation or pleural effusion. IMPRESSION: Heart upper limits of normal in size. No acute process seen.
[2018-02-03 16:40] LABS: Creatine Kinase 23 U/L (55-170)
[2018-02-03 16:53] LABS: Creatine Kinase MB 0.3 ng/mL (0.0-2.4); Troponin I <0.012 ng/mL (0.000-0.034)
[2018-02-03] MEDS ORDERED: SODIUM CHLORIDE 0.9% 1,000 ML IV ONE (18:26)
[2018-02-03 18:28] VITALS: RESP 18
[2018-02-03 18:30] LABS: Appearance,Urine Clear (Clear); Bacteria,Urine Rare /hpf; Bilirubin,Urine 1+ (Negative); Blood,Urine Negative (Negative); Color,Urine Dark Brown; Glucose,Urine (UA) Negative (Negative); Hyaline Casts,Urine 3 /lpf (0-2); Ketones,Urine Negative (Negative); Leukocyte Esterase,Urine Negative (Negative); Mucus,Urine Moderate /hpf; Protein,Urine 1+ (Negative); RBC,Urine 2 /hpf (0-5); Specific Gravity,Urine 1.031 (1.001-1.035); WBC,Urine 5 /hpf (0-5)
[2018-02-03] MEDS ORDERED: BENZONATATE 100 MG CAP PO STA (18:36)
[2018-02-03 20:23] VITALS: BP 177/85; PULSE 67
== END 2018-02-03 20:39 | disposition home or self-care (01) ==
LOC: EC 14:59
DX: E86.0 Dehydration (principal); J06.9 Acute upper respiratory infection, unspecified; R42 Dizziness and giddiness; E11.9 Type 2 diabetes mellitus without complications; E78.5 Hyperlipidemia, unspecified; I10 Essential (primary) hypertension; Z87.891 Personal history of nicotine dependence; Z79.1 Long term (current) use of non-steroidal anti-inflammatories (NSAID); Z79.82 Long term (current) use of aspirin; Z79.84 Long term (current) use of oral hypoglycemic drugs; Z79.899 Other long term (current) drug therapy; Z88.8 Allergy status to other drugs, medicaments and biological substances; Z88.1 Allergy status to other antibiotic agents
CPT/HCPCS: 36415; 71046; 80053; 81001; 82550; 82553; 83735; 84484; 85025; 85610; 85730; 93005; 96360; 96361; 99285

== ENCOUNTER 2018-10-15 14:16 | Observation (INO) | payer OTHER, MEDICARE ==
[2018-10-15] MEDS ORDERED: DIAZEPAM 5 MG/ML 2 ML INJ IVP STA ×2 (14:22→16:11)
[2018-10-15] MEDS ORDERED: SODIUM CHLORIDE 0.9% 500 ML 500 ML IV STA (14:37)
[2018-10-15] MEDS ORDERED: SODIUM CHLORIDE 0.9% 1,000 ML IV STA (14:37)
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
[2018-10-15 14:58] LABS: Basophils % (A) 0 %; Eosinophils # (A) 0.2 k/uL (0-0.7); Eosinophils % (A) 1 %; HCT 41.3 % (39.0-53.0); HGB 14.5 gm/dL (13.0-17.5); Lymphocytes # (A) 1.7 k/uL (1.0-4.8); Lymphocytes % (A) 13 %; MCH 32.9 pg (25.0-35.0); MCHC 35.2 g/dL (31.0-37.0); MCV 93.5 fL (80.0-100.0); Mean Platelet Volume 7.8; Monocytes # (A) 0.5 k/uL (0-1.0); Monocytes % (A) 4 %; Neutrophils # (A) 10.5 k/uL (1.3-7.7); Neutrophils % (A) 80 %; Platelet Count 309 k/uL (150-450); RBC 4.42 m/uL (4.30-5.90); RDW 12.2 % (11.5-15.5); WBC 13.1 k/uL (3.8-10.6)
[2018-10-15 15:09] LABS: ALT 21 U/L (21-72); AST 25 U/L (17-59); Albumin 3.9 g/dL (3.5-5.0); Alkaline Phosphatase 99 U/L (38-126); Amylase 44 U/L (30-110); Anion Gap 12 mmol/L; Blood Urea Nitrogen 19 mg/dL (9-20); Calcium 9.5 mg/dL (8.4-10.2); Carbon Dioxide 20 mmol/L (22-30); Chloride 106 mmol/L (98-107); Glucose 234 mg/dL (74-99); Lipase 47 U/L (23-300); Magnesium 1.6 mg/dL (1.6-2.3); Potassium 4.7 mmol/L (3.5-5.1); Sodium 138 mmol/L (137-145); Total Bilirubin 0.9 mg/dL (0.2-1.3); Total Protein 7.2 g/dL (6.3-8.2)
[2018-10-15 15:11] LABS: Creatine Kinase 38 U/L (55-170)
[2018-10-15 15:25] LABS: Creatine Kinase MB 0.7 ng/mL (0.0-2.4); Troponin I <0.012 ng/mL (0.000-0.034)
--- NOTE | 2018-10-15 15:47 | CT ---
EXAMINATION TYPE: CT brain wo con DATE OF EXAM: 10/15/2018 COMPARISON: 06/05/2011 HISTORY: Poor historian. Pain. CT DLP: 863.[address] of the brain was performed. The ventricles, basal cisterns and sulci overlying the cerebral convexities demonstrate mild enlargem ent. There is no evidence for intracranial hemorrhage or sulcal effacement. There is decreased attenuation about the periventricular white matter and deep white matter of both c erebral hemispheres, compatible with chronic small vessel ischemia. Differential diagnosis does inclu de demyelination. No mass effects are seen.No midline shift. Osseous calvarium is intact. If symptoms persist consider MRI. IMPRESSION: 1. Age related atrophic and chronic small vessel ischemic change without acute intracranial process s een at this time.
[2018-10-15] MEDS ORDERED: PROMETHAZINE INJ 25 MG in SODIUM CHLORIDE 0.9% 50 ML IVPB STA (16:11)
[2018-10-15] MEDS ORDERED: FUROSEMIDE 10 MG/ML 4 ML VIAL IV STA (16:13)
[2018-10-15] MEDS ORDERED: methylPREDNISolone SOD SUCCI 125 MG/2 ML VIAL IV STA (16:13)
[2018-10-15] MEDS ORDERED: ACETAMINOPHEN IV (For NPO) 1,000 MG in EMPTY BAG 1 BAG IVPB STA (16:21)
[2018-10-15] MEDS ORDERED: NALOXONE 0.4 MG/ML 1 ML VIAL IV PRN (17:08)
[2018-10-15] MEDS ORDERED: ONDANSETRON 4 MG/2 ML VIAL IVP PRN (17:13)
[2018-10-15] MEDS ORDERED: MECLIZINE 12.5 MG TAB PO STA (17:14)
[2018-10-15] MEDS: PANTOPRAZOLE 40 MG TABLET PO SCH (18:09)
[2018-10-15] MEDS: ATORVASTATIN 40 MG TAB PO SCH (22:52)
[2018-10-15] MEDS: ASPIRIN 81 MG PO SCH (23:16)
[2018-10-15] MEDS ORDERED: MECLIZINE 12.5 MG TAB PO PRN (23:16)
[2018-10-15] MEDS: TAMSULOSIN 0.4 MG CAP.ER.24H PO SCH (23:16)
[2018-10-15] MEDS: HEPARIN SODIUM,PORCINE 5,000 UNIT/ML 1 ML VIAL SQ SCH (23:17)
[2018-10-15] MEDS ORDERED: LABETALOL 200 MG TAB PO STA (23:18)
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
[2018-10-15] MEDS: LINAGLIPTIN 5 MG TABLET PO SCH (23:50)
[2018-10-16] MEDS: LEVOTHYROXINE 50 MCG TAB PO SCH (04:50)
[2018-10-16 06:53] LABS: Glucose,Whole Blood 255 mg/dL (75-99)
[2018-10-16 08:38] LABS: Basophils % (A) 0 %; Eosinophils # (A) 0.1 k/uL (0-0.7); Eosinophils % (A) 1 %; HCT 40.3 % (39.0-53.0); HGB 13.5 gm/dL (13.0-17.5); Lymphocytes # (A) 0.8 k/uL (1.0-4.8); Lymphocytes % (A) 5 %; MCH 32.2 pg (25.0-35.0); MCHC 33.6 g/dL (31.0-37.0); MCV 95.9 fL (80.0-100.0); Mean Platelet Volume 7.7; Monocytes # (A) 0.4 k/uL (0-1.0); Monocytes % (A) 2 %; Neutrophils # (A) 14.7 k/uL (1.3-7.7); Neutrophils % (A) 92 %; Platelet Count 278 k/uL (150-450); RDW 12.3 % (11.5-15.5); WBC 15.9 k/uL (3.8-10.6)
[2018-10-16] MEDS: PANTOPRAZOLE 40 MG TABLET PO SCH (08:41)
[2018-10-16] MEDS: HEPARIN SODIUM,PORCINE 5,000 UNIT/ML 1 ML VIAL SQ SCH ×3 (08:41→23:44)
[2018-10-16] MEDS: INSULIN ASPART 100 UNIT/ML 1 ML 10 ML VIAL SQ SCH ×3 (08:41→17:35)
[2018-10-16] MEDS: buPROPion 100 MG TAB PO SCH (08:42)
[2018-10-16] MEDS: ATENOLOL 50 MG TAB PO SCH (08:42)
[2018-10-16] MEDS: ASPIRIN 81 MG PO SCH (08:42)
[2018-10-16] MEDS: MULTIVITAMINS, THERA 1 EACH TAB PO SCH (08:43)
[2018-10-16 08:50] LABS: Anion Gap 10 mmol/L; Blood Urea Nitrogen 23 mg/dL (9-20); Calcium 9.1 mg/dL (8.4-10.2); Carbon Dioxide 23 mmol/L (22-30); Chloride 106 mmol/L (98-107); Glucose 238 mg/dL (74-99); Potassium 4.1 mmol/L (3.5-5.1); Sodium 139 mmol/L (137-145)
[2018-10-16] MEDS ORDERED: buPROPion 100 MG TAB PO SCH (09:00)
[2018-10-16] MEDS ORDERED: ASPIRIN 81 MG PO SCH (09:00)
[2018-10-16 12:01] LABS: Glucose,Whole Blood 300 mg/dL (75-99)
[2018-10-16] MEDS: ARTIFICIAL TEARS-HYPROMELLOSE DROPS 15 ML BTL BOTH EYES SCH (12:40)
[2018-10-16 14:28] LABS: Hemoglobin A1C 6.3 % (4.0-6.0)
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
[2018-10-16 16:48] LABS: Glucose,Whole Blood 181 mg/dL (75-99)
--- NOTE | 2018-10-16 16:58 | XR ---
EXAMINATION TYPE: XR chest 2V DATE OF EXAM: 10/16/2018 COMPARISON: 02/03/2018 HISTORY: Shortness of breath. Concern for pneumonia. TECHNIQUE: Frontal and lateral views of the chest are obtained. FINDINGS: Strand-like left basilar atelectasis. There is no focal air space opacity, pleural effusion , or pneumothorax seen. The cardiac silhouette size is upper limits of normal. The osseous structure s are intact. IMPRESSION: Minimal left basilar subsegmental atelectasis otherwise no acute cardiopulmonary process.
[2018-10-16 18:29] LABS: Appearance,Urine Clear (Clear); Bilirubin,Urine Negative (Negative); Blood,Urine Negative (Negative); Color,Urine Yellow; Glucose,Urine (UA) Negative (Negative); Ketones,Urine Negative (Negative); Leukocyte Esterase,Urine Negative (Negative); Nitrite,Urine Negative (Negative); Protein,Urine Trace (Negative); Specific Gravity,Urine 1.025 (1.001-1.035); Urobilinogen,Urine <2.0 mg/dL (<2.0)
[2018-10-16 20:32] LABS: Glucose,Whole Blood 169 mg/dL (75-99)
[2018-10-16] MEDS: ATORVASTATIN 40 MG TAB PO SCH (20:49)
[2018-10-16] MEDS: TAMSULOSIN 0.4 MG CAP.ER.24H PO SCH (20:49)
[2018-10-16] MEDS: LINAGLIPTIN 5 MG TABLET PO SCH (20:49)
[2018-10-17] MEDS: LEVOTHYROXINE 50 MCG TAB PO SCH (06:06)
[2018-10-17 06:47] LABS: Glucose,Whole Blood 130 mg/dL (75-99)
[2018-10-17] MEDS: INSULIN ASPART 100 UNIT/ML 1 ML 10 ML VIAL SQ SCH ×2 (07:32→12:13)
[2018-10-17 07:48] LABS: Basophils % (A) 0 %; Eosinophils # (A) 0.2 k/uL (0-0.7); Eosinophils % (A) 1 %; HCT 37.9 % (39.0-53.0); HGB 12.7 gm/dL (13.0-17.5); Lymphocytes # (A) 2.5 k/uL (1.0-4.8); Lymphocytes % (A) 21 %; MCH 32.4 pg (25.0-35.0); MCHC 33.6 g/dL (31.0-37.0); MCV 96.5 fL (80.0-100.0); Monocytes # (A) 0.5 k/uL (0-1.0); Monocytes % (A) 4 %; Neutrophils # (A) 8.9 k/uL (1.3-7.7); Neutrophils % (A) 73 %; Platelet Count 185 k/uL (150-450); RBC 3.92 m/uL (4.30-5.90); RDW 12.6 % (11.5-15.5); WBC 12.3 k/uL (3.8-10.6)
[2018-10-17 08:14] LABS: Anion Gap 7 mmol/L; Blood Urea Nitrogen 25 mg/dL (9-20); Calcium 8.8 mg/dL (8.4-10.2); Carbon Dioxide 28 mmol/L (22-30); Chloride 106 mmol/L (98-107); Glucose 116 mg/dL (74-99); Potassium 4.2 mmol/L (3.5-5.1); Sodium 141 mmol/L (137-145)
[2018-10-17] MEDS: HEPARIN SODIUM,PORCINE 5,000 UNIT/ML 1 ML VIAL SQ SCH (09:42)
[2018-10-17] MEDS: ASPIRIN 81 MG PO SCH (09:42)
[2018-10-17] MEDS: ARTIFICIAL TEARS-HYPROMELLOSE DROPS 15 ML BTL BOTH EYES SCH (09:43)
[2018-10-17] MEDS: PANTOPRAZOLE 40 MG TABLET PO SCH (09:43)
[2018-10-17] MEDS: ATENOLOL 50 MG TAB PO SCH (09:43)
[2018-10-17] MEDS: MULTIVITAMINS, THERA 1 EACH TAB PO SCH (09:43)
[2018-10-17] MEDS: buPROPion 100 MG TAB PO SCH (09:43)
[2018-10-17 11:46] LABS: Glucose,Whole Blood 229 mg/dL (75-99)
--- NOTE | 2018-10-17 12:43 | P.PN ---
Subjective Progress Note Date: 10/17/18 Principal diagnosis: Patient is a pleasant 73-year-old male who is being followed by the neurology service for intractable vertigo. Patient is a poor historian. Patient denies dizziness. Patient explained it is more like a pressure in his head. The states at the time of the episode, patient did complain of severe dizziness. explains that were 2 episodes of dizziness and one of them landed him on the floor. EMS brought patient to [facility] for further evaluation. Patient and family deny any lateralizing weakness, speech difficulty, or seizure-like activity. CT of the brain was done which showed no acute process. Patient denies any further nausea vomiting or dizziness since admission. At the time of my evaluation, patient is resting comfortably in bed and appears to be in no acute distress. Objective - Vital Signs Vital signs: Vital Signs Temp 97.8 F 10/17/18 08:00 Pulse 76 10/17/18 12:00 Resp 18 10/17/18 12:00 BP 167/93 10/17/18 08:00 Pulse Ox 96 10/17/18 08:00 Intake & Output 10/16/18 10/17/18 10/17/18 18:59 06:59 18:59 Intake Total 200 Balance 200 Intake: Oral 200 Other: Voiding Method Toilet Toilet # Voids 2 1 - Exam PHYSICAL EXAM: GENERAL APPEARANCE: Patient is a well-developed, male who appears to be in no acute distress. HEENT: Normocephalic, atraumatic, no facial asymmetry is seen. Neck is supple with no masses felt. CARDIOVASCULAR: Regular rate and rhythm. ABDOMEN: Nontender, nondistended. EXTREMITIES: Show no edema or clubbing. NEUROLOGICAL EXAM: Patient is awake, alert, and oriented 3. Speech and language are normal. Strength is full in all 4 extremities. Sensory exam to light touch is normal in all 4 extremities. No facial asymmetry seen on cranial nerve testing. No tremors or seizure-like activity noted. - Labs CBC & Chem 7: 10/17/18 06:48 10/17/18 06:48 Labs: Abnormal Lab Results - Last 24 Hours (Table) 10/15/18 10/16/18 10/16/18 Range/Units 14:28 16:37 18:15 WBC (3.8-10.6) k/uL RBC (4.30-5.90) m/uL Hgb (13.0-17.5) gm/dL Hct (39.0-53.0) % Neutrophils # (1.3-7.7) k/uL BUN (9-20) mg/dL Glucose (74-99) mg/dL POC Glucose (mg/dL) 181 H (75-99) mg/dL Hemoglobin A1c 6.3 H (4.0-6.0) % Urine Protein Trace H (Negative) 10/16/18 10/17/18 10/17/18 Range/Units 20:26 06:45 06:48 WBC 12.3 H (3.8-10.6) k/uL RBC 3.92 L (4.30-5.90) m/uL Hgb 12.7 L (13.0-17.5) gm/dL Hct 37.9 L (39.0-53.0) % Neutrophils # 8.9 H (1.3-7.7) k/uL BUN (9-20) mg/dL Glucose (74-99) mg/dL POC Glucose (mg/dL) 169 H 130 H (75-99) mg/dL Hemoglobin A1c (4.0-6.0) % Urine Protein (Negative) 10/17/18 10/17/18 Range/Units 06:48 11:44 WBC (3.8-10.6) k/uL RBC (4.30-5.90) m/uL Hgb (13.0-17.5) gm/dL Hct (39.0-53.0) % Neutrophils # (1.3-7.7) k/uL BUN 25 H (9-20) mg/dL Glucose 116 H (74-99) mg/dL POC Glucose (mg/dL) 229 H (75-99) mg/dL Hemoglobin A1c (4.0-6.0) % Urine Protein (Negative) Microbiology - Last 24 Hours (Table) 10/16/18 18:15 Urine Culture - Preliminary Urine,Clean Catch Assessment and Plan Plan: Impression: 1. Dizziness 2. Nausea and vomiting 3. Leukocytosis. 4. Diabetes mellitus 5. Hypothyroid 6. Hypertension 7. GERD Recommendation: It does appear patient had severe dizziness with nausea and vomiting yesterday. Patient denies any return of dizziness since admission. Patient has history of dizziness but reportedly has never had any workup for this. Due to patient's mild confusion, increasing WBC count, and increasing blood sugars, patient may have infectious process developing. I had ordered a UA with culture and sensitivity and a chest x-ray which were both unremarkable. Urine culture is pending. WBC is trending down. Continue meclizine 12.5 mg twice a day when necessary. Due to resolution of dizziness at this time, patient can be worked up further as an outpatient for peripheral versus central vertigo. No further neurological testing needed at this time. Patient is welcome to follow up in our office for further neurophysiological workup or [facility] Patient is stable from a neurological standpoint for discharge. I will continue to follow with you on an as-needed basis. I performed an examination of the patient and discussed the management with the ADVERTISING PROJECT MANAGER. I have reviewed the ADVERTISING PROJECT MANAGER notes and agree with the findings and plan of care.
[2018-10-17 12:53] VITALS: BP 180/84; PULSE 77; RESP 16; TEMP 97.5
[2018-10-17] MEDS ORDERED: amLODIPine 5 MG TAB PO SCH (13:00)
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
== END 2018-10-17 15:04 | disposition home or self-care (01) ==
LOC: EC 14:16 → 1SOBS 17:08 → 3SCARD 19:23 → 1SOBS 19:24
PROVIDERS: ADMIT Internal Medicine; ATTEND Internal Medicine
DX: H93.19 Tinnitus, unspecified ear (principal); R42 Dizziness and giddiness; D72.829 Elevated white blood cell count, unspecified; I10 Essential (primary) hypertension; E11.65 Type 2 diabetes mellitus with hyperglycemia; E78.5 Hyperlipidemia, unspecified; E03.9 Hypothyroidism, unspecified; K21.9 Gastro-esophageal reflux disease without esophagitis; F32.9 Major depressive disorder, single episode, unspecified; R51 Headache; R61 Generalized hyperhidrosis; R41.0 Disorientation, unspecified; R11.2 Nausea with vomiting, unspecified; H91.90 Unspecified hearing loss, unspecified ear; Z82.49 Family history of ischemic heart disease and other diseases of the circulatory system; Z79.899 Other long term (current) drug therapy; Z79.1 Long term (current) use of non-steroidal anti-inflammatories (NSAID); Z79.82 Long term (current) use of aspirin; Z79.890 Hormone replacement therapy; H57.9 Unspecified disorder of eye and adnexa; Z88.8 Allergy status to other drugs, medicaments and biological substances; Z88.1 Allergy status to other antibiotic agents; E66.9 Obesity, unspecified; Z68.27 Body mass index [BMI] 27.0-27.9, adult; Z87.828 Personal history of other (healed) physical injury and trauma; Z87.891 Personal history of nicotine dependence
CPT/HCPCS: 96361 ×2; 96372 ×3; 96376; 96365; 96375; 99285; 36415; 93005; 80053; 80048 ×2; 84443; 82150; 82550; 82553; 83690; 83735; 84484; 85025 ×3; 81003; 87086; 83036; 71046; 70450; G0378 ×3; J1644 ×3; J1940; J2550; J2930; J3360; J0131

== ENCOUNTER 2021-05-25 20:14 | Emergency (ER) | payer OTHER, MEDICARE ==
[2021-05-25 20:22] VITALS: BP 135/86; PULSE 64; RESP 18; TEMP 97.5
[2021-05-25] MEDS ORDERED: SODIUM CHLORIDE 0.9% 500 ML 500 ML IV STA (20:31)
[2021-05-25 20:40] LABS: Glucose,Whole Blood 123 mg/dL (75-99)
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
[2021-05-25 20:53] LABS: Basophils # (A) 0.1 k/uL (0-0.2); Basophils % (A) 1 %; Eosinophils # (A) 0.3 k/uL (0-0.7); Eosinophils % (A) 4 %; HCT 41.2 % (39.0-53.0); HGB 14.3 gm/dL (13.0-17.5); Lymphocytes # (A) 2.4 k/uL (1.0-4.8); Lymphocytes % (A) 28 %; MCH 32.5 pg (25.0-35.0); MCHC 34.8 g/dL (31.0-37.0); MCV 93.5 fL (80.0-100.0); Mean Platelet Volume 8.5; Monocytes # (A) 0.6 k/uL (0-1.0); Monocytes % (A) 8 %; Neutrophils # (A) 4.9 k/uL (1.3-7.7); Neutrophils % (A) 59 %; Platelet Count 213 k/uL (150-450); RBC 4.41 m/uL (4.30-5.90); RDW 12.6 % (11.5-15.5); WBC 8.4 k/uL (3.8-10.6)
[2021-05-25 21:09] LABS: Prothrombin Time 10.4 sec (9.0-12.0)
[2021-05-25 21:10] LABS: ALT 25 U/L (4-49); African American GFR (CKD) >90 (>60 ml/min/1.73 sqM); Anion Gap 9 mmol/L; Blood Urea Nitrogen 32 mg/dL (9-20); Calcium 9.1 mg/dL (8.4-10.2); Carbon Dioxide 24 mmol/L (22-30); Chloride 104 mmol/L (98-107); Glucose 126 mg/dL (74-99); Non-African American GFR(CKD) 78 (>60 ml/min/1.73 sqM); Sodium 137 mmol/L (137-145); Total Bilirubin 0.6 mg/dL (0.2-1.3); Total Protein 7.2 g/dL (6.3-8.2)
[2021-05-25 21:17] LABS: Partial Thromboplastin Time 19.6 sec (22.0-30.0)
--- NOTE | 2021-05-25 21:25 | XR ---
EXAMINATION TYPE: XR chest 2V DATE OF EXAM: 05/25/2021 COMPARISON: 10/16/2018 HISTORY: Syncope TECHNIQUE: FINDINGS: Heart and mediastinum are normal. Lungs are clear. Diaphragm is normal. Bony thorax is inta ct. There are chest leads. IMPRESSION: Normal chest. No change.
[2021-05-25 21:28] LABS: AST 41 U/L (17-59); Albumin 4.2 g/dL (3.5-5.0); Alkaline Phosphatase 53 U/L (38-126); Magnesium 1.6 mg/dL (1.6-2.3); Potassium 4.7 mmol/L (3.5-5.1)
== END 2021-05-25 23:01 | disposition home or self-care (01) ==
LOC: EC 20:14
DX: R55 Syncope and collapse (principal); R42 Dizziness and giddiness; R61 Generalized hyperhidrosis; E03.9 Hypothyroidism, unspecified; E11.9 Type 2 diabetes mellitus without complications; E78.5 Hyperlipidemia, unspecified; I10 Essential (primary) hypertension; K21.9 Gastro-esophageal reflux disease without esophagitis; F32.9 Major depressive disorder, single episode, unspecified; Z87.19 Personal history of other diseases of the digestive system; Z79.82 Long term (current) use of aspirin; Z79.1 Long term (current) use of non-steroidal anti-inflammatories (NSAID); Z79.84 Long term (current) use of oral hypoglycemic drugs; Z79.890 Hormone replacement therapy; Z88.8 Allergy status to other drugs, medicaments and biological substances
CPT/HCPCS: 36415; 71046; 80053; 83735; 84484; 85025; 85610; 85730; 93005; 99284

== ENCOUNTER → 2021-06-19 | Outpatient (CLI) | payer OTHER ==
[2021-06-19 10:47] LABS: African American GFR (CKD) >90 (>60 ml/min/1.73 sqM); Blood Urea Nitrogen 25 mg/dL (9-20); Non-African American GFR(CKD) 89 (>60 ml/min/1.73 sqM)
--- NOTE | 2021-06-23 08:59 | CT ---
EXAMINATION TYPE: CT ChestAbdPelvis wo/w con DATE OF EXAM: 06/19/2021 COMPARISON: none HISTORY: Abnormal weight loss CT DLP: 1336.40 mGycm CONTRAST: CT scan of the chest, abdomen and pelvis is performed with Oral Contrast and without and with IV Cont rast, patient injected with 100 ml mL of Isovue 300. CT Chest: LUNGS: The lungs are clear and free of infiltrate or atelectasis. Proximal scarring right lower lobe. No pulmonary nodule or mass is detected. No pleural effusion or CT evidence of interstitial lung d isease. MEDIASTINUM: Thoracic aorta is of normal caliber. The heart is not enlarged. No evidence for media stinal mass or adenopathy. HILAR STRUCTURES: No evidence for mass. No hilar adenopathy is appreciated. OTHER: No significant abnormality. CONTRAST CT ABDOMEN AND PELVIS FINDINGS: LIVER/GB: No calcified gallstones. No space occupying hepatic lesion. Biliary tree is of normal ca liber. PANCREAS: No inflammation. No distinct mass. SPLEEN: No splenic enlargement. No lesion seen. ADRENALS: No nodule. No thickening. KIDNEYS/BLADDER: No hydronephrosis. No nephrolithiasis. No disctinct renal mass. BOWEL: Normal appendix. Normal bowel caliber. No inflammation. GENITAL ORGANS: No gross abnormality. LYMPH NODES: No greater than 1cm abdominal or pelvic lymph nodes are appreciated. AORTA: No significant abnormality. OSSEOUS STRUCTURES: No significant abnormality is seen. OTHER: No significant additional abnormality is seen. IMPRESSION: 1. No significant abnormality to account for the patient's symptomatic area
== END | disposition home or self-care (01) ==
LOC: RADCTMAIN 09:38
PROVIDERS: ATTEND Nurse Practitioner Acute Care
DX: R63.4 Abnormal weight loss (principal)
CPT/HCPCS: 82565; 84520; 71270; 74178; 36415; Q9967

== ENCOUNTER 2021-06-25 16:47 | Emergency (ER) | payer OTHER ==
[2021-06-25] MEDS ORDERED: SODIUM CHLORIDE 0.9% 1,000 ML IV STA (17:19)
[2021-06-25] MEDS ORDERED: MECLIZINE 12.5 MG TAB PO STA (17:19)
[2021-06-25 17:50] LABS: ALT 22 U/L (4-49); AST 35 U/L (17-59); African American GFR (CKD) >90 (>60 ml/min/1.73 sqM); Albumin 3.7 g/dL (3.5-5.0); Alkaline Phosphatase 54 U/L (38-126); Anion Gap 8 mmol/L; Blood Urea Nitrogen 26 mg/dL (9-20); Calcium 8.5 mg/dL (8.4-10.2); Carbon Dioxide 25 mmol/L (22-30); Chloride 105 mmol/L (98-107); Glucose 134 mg/dL (74-99); Non-African American GFR(CKD) >90 (>60 ml/min/1.73 sqM); Potassium 4.2 mmol/L (3.5-5.1); Sodium 138 mmol/L (137-145); Total Bilirubin 0.4 mg/dL (0.2-1.3); Total Protein 6.5 g/dL (6.3-8.2)
[2021-06-25 17:56] LABS: Prothrombin Time 10.8 sec (9.0-12.0)
[2021-06-25 18:06] LABS: Basophils % (A) 0 %; Eosinophils # (A) 0.1 k/uL (0-0.7); Eosinophils % (A) 1 %; HCT 39.7 % (39.0-53.0); HGB 13.6 gm/dL (13.0-17.5); Lymphocytes # (A) 0.9 k/uL (1.0-4.8); Lymphocytes % (A) 8 %; MCH 32.9 pg (25.0-35.0); MCHC 34.2 g/dL (31.0-37.0); MCV 96.1 fL (80.0-100.0); Monocytes # (A) 0.5 k/uL (0-1.0); Monocytes % (A) 5 %; Neutrophils # (A) 9.5 k/uL (1.3-7.7); Neutrophils % (A) 85 %; Platelet Count 197 k/uL (150-450); RBC 4.13 m/uL (4.30-5.90); RDW 12.6 % (11.5-15.5); WBC 11.2 k/uL (3.8-10.6)
--- NOTE | 2021-06-25 18:28 | CT ---
EXAMINATION TYPE: CT brain wo con DATE OF EXAM: 06/25/2021 COMPARISON: 10/15/2018 HISTORY: Dizziness without injury CT DLP: 1201.4 mGycm Automated exposure control for dose reduction was used. Ventricles have normal size. There is no mass effect nor midline shift. There is no sign of intracran ial hemorrhage. There is some cerebral cortical atrophy. The calvarium is intact. There is normal aer ation of the mastoid sinuses. IMPRESSION: Mild atrophy. No acute intracranial abnormality. No change.
[2021-06-25 18:56] VITALS: RESP 18
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
[2021-06-25 19:08] LABS: Appearance,Urine Clear (Clear); Bilirubin,Urine Negative (Negative); Blood,Urine Negative (Negative); Color,Urine Yellow; Glucose,Urine (UA) Negative (Negative); Ketones,Urine 1+ (Negative); Leukocyte Esterase,Urine Negative (Negative); Nitrite,Urine Negative (Negative); PH, Urine 5.5 (5.0-8.0); Protein,Urine Negative (Negative); Specific Gravity,Urine 1.015 (1.001-1.035); Urobilinogen,Urine <2.0 mg/dL (<2.0)
[2021-06-25 19:16] VITALS: BP 132/71; PULSE 65; TEMP 98.1
== END 2021-06-25 19:18 | disposition home or self-care (01) ==
LOC: EC 16:47
DX: R42 Dizziness and giddiness (principal); R11.10 Vomiting, unspecified; E11.9 Type 2 diabetes mellitus without complications; I10 Essential (primary) hypertension; E03.9 Hypothyroidism, unspecified; K21.9 Gastro-esophageal reflux disease without esophagitis; F32.9 Major depressive disorder, single episode, unspecified; Z87.19 Personal history of other diseases of the digestive system; Z79.890 Hormone replacement therapy; Z79.1 Long term (current) use of non-steroidal anti-inflammatories (NSAID); Z79.82 Long term (current) use of aspirin; Z88.8 Allergy status to other drugs, medicaments and biological substances
CPT/HCPCS: 36415; 70450; 80053; 81003; 84484; 85025; 85610; 93005; 96360; 99285

== ENCOUNTER 2021-06-27 06:31 | Day surgery (SDC) | payer MEDICARE, OTHER ==
[2021-06-24 12:24] VITALS: BMI 24.3
[~2021-06-27 06:31] MED LIST: LACTATED RINGERS 1,000 ML IV SCH
[2021-06-27 07:20] VITALS: TEMP 96.6
[2021-06-27 07:24] LABS: Glucose,Whole Blood 113 mg/dL (75-99)
[2021-06-27] MEDS ORDERED: PROPOFOL 10 MG/ML 20 ML VIAL IV ONE (07:42)
[2021-06-27] MEDS ORDERED: LIDOCAINE 1% INJ 10MG/ML (20 ML MDV) ONE (07:42)
--- NOTE | 2021-06-27 08:06 | P.PCN ---
Date of Procedure: 06/27/21 Description of Procedure: BRIEF HISTORY: Patient is a 76-year-old male presenting for outpatient colonoscopy for screening for malignant neoplasm of the colon. Patient was last colonoscopy was 10 years ago normal. No family history of colon cancer. No other acute complaints at this time. PROCEDURE PERFORMED: Colonoscopy with polypectomy. PREOPERATIVE DIAGNOSIS: Screening for malignant neoplasm of the colon, patient reports that last colonoscopy was 10 years ago. ESTIMATED BLOOD LOSS: Minimal. IV sedation per Anesthesia. PROCEDURE: After informed consent was obtained, the patient, was brought into the endoscopy unit. IV sedation was administered by Anesthesia under continuous monitoring. Digital rectal examination was normal. Initially the Olympus CF-190 flexible video colonoscope was then inserted in the rectum, gradually advanced into the cecum without any difficulty. Careful examination was performed as the scope was gradually being withdrawn. Ileocecal valve and the appendiceal orifice were visualized and appeared normal. Prep was excellent. Mucosa of the cecum, ascending colon, transverse colon, descending colon, sigmoid colon, and rectum appeared normal. A diminutive 2 mm cecal polyp was removed with cold forcep polypectomy. Multiple small and large mouth diverticula noted in the left colon. Retroflexion was performed in the rectum and no lesions were seen, and internal hemorrhoids were noted. The patient tolerated the procedure well. IMPRESSION: Diminutive cecal polyp removed with cold forcep polypectomy. Mild left colonic diverticulosis. Internal hemorrhoids. RECOMMENDATIONS: Findings of this examination were discussed with the patient and his family. Okay to resume diet. Okay to resume medications. Await pathology from polypectomy. Recommend repeat colonoscopy in 7 years if medically stable at that time and amenable to further screening, pending pathology from polypectomy.
[2021-06-27 08:13] VITALS: RESP 16
[2021-06-27 09:05] VITALS: BP 107/74; PULSE 88
== END 2021-06-27 09:09 | disposition home or self-care (01) ==
LOC: ORWHC2ENDO 06:31
PROVIDERS: ATTEND Internal Medicine
DX: Z12.11 Encounter for screening for malignant neoplasm of colon (principal); K57.30 Diverticulosis of large intestine without perforation or abscess without bleeding; D12.0 Benign neoplasm of cecum; K64.8 Other hemorrhoids
CPT/HCPCS: 45380; J2001; J2704; 88305

== ENCOUNTER → 2021-08-13 | Outpatient (CLI) | payer OTHER ==
--- NOTE | 2021-08-14 06:18 | MR ---
EXAMINATION TYPE: MR brain and iac wo/w con DATE OF EXAM: 08/13/2021 COMPARISON: None HISTORY: Hearing loss, peripherial vertigo, bilateral CONTRAST: Standard multiplanar, multisequence MRI departmental protocol utilizing 7 mL intravenous Gadavist lubna olinium contrast. There is cerebral cortical atrophy. There is no mass effect nor midline shift. There is no sign of in tracranial hemorrhage. Diffusion images show no evidence of an acute infarct. There are small areas o f increased signal around the lateral ventricles in the periventricular white matter that measure up to 4 mm. Total number is less than 5. There is mild white matter increased signal around the frontal horns and occipital horns of the lateral ventricles. Corpus callosum is intact. Brainstem is intact. Sella turcica is intact. There is no evidence of a posterior fossa mass. Thin sections through the posterior fossa show normal appearing internal auditory canals. The acoustic nerve and vestibular nerves appear normal. There is normal signal pattern of the mastoid sinuses. The contrast images show no pathologic enhancement. Th ere is normal enhancement of the venous sinuses. Optic chiasm appears normal. Pituitary stalk is in t he midline. IMPRESSION: Cerebral atrophy. No acute intracranial abnormality. No focal posterior fossa abnormality. White dao er signal changes probably related to some microvascular ischemia.
== END | disposition home or self-care (01) ==
LOC: RADMRIMAIN 07:33
PROVIDERS: ATTEND Physician Assistant
DX: G31.9 Degenerative disease of nervous system, unspecified (principal)
CPT/HCPCS: 70553; A9585

== ENCOUNTER 2021-09-02 10:24 | Emergency (ER) | payer OTHER ==
[2021-09-02 10:34] VITALS: TEMP 98.6
[2021-09-02] MEDS ORDERED: SODIUM CHLORIDE 0.9% 1,000 ML IV STA (10:54)
[2021-09-02] MEDS ORDERED: SODIUM CHLORIDE 0.9% 500 ML 500 ML IV STA (10:54)
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
[2021-09-02 11:16] LABS: Basophils % (A) 1 %; Eosinophils # (A) 0.2 k/uL (0-0.7); Eosinophils % (A) 2 %; HCT 40.9 % (39.0-53.0); HGB 14.2 gm/dL (13.0-17.5); Lymphocytes # (A) 1.5 k/uL (1.0-4.8); Lymphocytes % (A) 22 %; MCH 33.1 pg (25.0-35.0); MCHC 34.6 g/dL (31.0-37.0); MCV 95.5 fL (80.0-100.0); Monocytes # (A) 0.3 k/uL (0-1.0); Monocytes % (A) 5 %; Neutrophils # (A) 4.7 k/uL (1.3-7.7); Neutrophils % (A) 69 %; Platelet Count 220 k/uL (150-450); RBC 4.28 m/uL (4.30-5.90); RDW 13.3 % (11.5-15.5); WBC 6.9 k/uL (3.8-10.6)
--- NOTE | 2021-09-02 11:21 | XR ---
EXAMINATION TYPE: XR chest 2V DATE OF EXAM: 09/02/2021 COMPARISON: 05/25/2021 HISTORY: 76-year-old male with chest pain and weakness TECHNIQUE: AP and lateral views FINDINGS: Heart normal size. Aorta and pulmonary vasculature within normal limits. Some patchy left basilar and retrocardiac opacity is noted. Strandy atelectasis on the right base. A small 4 mm hyperdensity proj ecting at the medial left clavicle is unchanged, likely some type of external artifact or chronic ret ained foreign body. No consolidation or pleural effusion otherwise seen. IMPRESSION: Some patchy left basilar atelectasis versus early infiltrate. The former is favored.
[2021-09-02 11:35] LABS: ALT 24 U/L (4-49); AST 30 U/L (17-59); African American GFR (CKD) >90 (>60 ml/min/1.73 sqM); Albumin 3.6 g/dL (3.5-5.0); Alkaline Phosphatase 56 U/L (38-126); Anion Gap 8 mmol/L; Blood Urea Nitrogen 25 mg/dL (9-20); Carbon Dioxide 25 mmol/L (22-30); Chloride 104 mmol/L (98-107); Glucose 132 mg/dL (74-99); Magnesium 1.8 mg/dL (1.6-2.3); Non-African American GFR(CKD) 89 (>60 ml/min/1.73 sqM); Potassium 3.9 mmol/L (3.5-5.1); Sodium 137 mmol/L (137-145); Total Bilirubin 0.4 mg/dL (0.2-1.3); Total Protein 6.4 g/dL (6.3-8.2)
[2021-09-02 12:38] LABS: T4, Free (Free Thyroxine) 1.26 ng/dL (0.78-2.19)
[2021-09-02 12:39] VITALS: RESP 16
[2021-09-02 13:39] VITALS: BP 123/71; PULSE 68
== END 2021-09-02 13:45 | disposition home or self-care (01) ==
LOC: EC 10:24
DX: I95.1 Orthostatic hypotension (principal); E86.0 Dehydration; E11.9 Type 2 diabetes mellitus without complications; I10 Essential (primary) hypertension; E78.5 Hyperlipidemia, unspecified; E03.9 Hypothyroidism, unspecified; K21.9 Gastro-esophageal reflux disease without esophagitis; F32.9 Major depressive disorder, single episode, unspecified; Z79.890 Hormone replacement therapy; Z79.1 Long term (current) use of non-steroidal anti-inflammatories (NSAID); Z79.82 Long term (current) use of aspirin; Z79.899 Other long term (current) drug therapy; Z88.8 Allergy status to other drugs, medicaments and biological substances; Z82.49 Family history of ischemic heart disease and other diseases of the circulatory system
CPT/HCPCS: 36415; 71046; 80053; 83735; 84439; 84443; 84484; 85025; 93005; 96360; 99284

== ENCOUNTER → 2021-10-16 | Outpatient (CLI) | payer OTHER | END | disposition home or self-care (01) | LOC: LABWHC1 11:27 | PROVIDERS: ATTEND Internal Medicine Interventional Cardiology | DX: Z20.822 Contact with and (suspected) exposure to COVID-19 (principal) | CPT/HCPCS: 87635; C9803 ==

== ENCOUNTER 2021-10-17 08:57 | Day surgery (SDC) | payer OTHER ==
[2021-10-15 16:03] VITALS: BMI 21.2
[~2021-10-17 08:57] MED LIST changes: -LACTATED RINGERS 1,000 ML IV SCH; +SODIUM CHLORIDE 0.9% 1,000 ML IV SCH
[2021-10-17 09:34] VITALS: RESP 16; TEMP 97.5
[2021-10-17] MEDS ORDERED: IV FLUID CONTINUATION 400 ML IV ONE (11:34)
[2021-10-17 12:45] VITALS: BP 122/75; PULSE 64
--- NOTE | 2021-10-17 13:38 | P.EPPROC ---
- EP Procedure Note Electrophysiology Procedure Note: Diagnosis Recurrent dizzy spells and presyncope Twelve-lead EKG shows Sinus rhythm normal [place] narrow QRS normal ST segments Tilt table test per protocol Baseline blood pressure 120/84 mmHg, Baseline heart rate 79 beats a minute Patient was tilted upright at night of 70 per protocol There was no significant change in heart rate or blood pressure No syncope noted No neurocardiogenic syncope noted He was laid supine the end of the procedure Impression Normal heart rate and blood pressure response to upright tilting Normal twelve-lead EKG
== END 2021-10-17 12:45 | disposition home or self-care (01) ==
LOC: CATHEP 08:57
PROVIDERS: ATTEND Internal Medicine Clinical Cardiac Electrophysiology
DX: R55 Syncope and collapse (principal)
CPT/HCPCS: 93660

== ENCOUNTER 2022-01-02 08:42 | Inpatient (IN) | payer OTHER, MEDICARE ==
[2022-01-02] MEDS ORDERED: SODIUM CHLORIDE 0.9% 500 ML 500 ML IV STA (08:46)
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
[2022-01-02 09:31] LABS: INR 0.9 (<1.2); Partial Thromboplastin Time 23.4 sec (22.0-30.0); Prothrombin Time 10.1 sec (9.0-12.0)
[2022-01-02 09:39] LABS: Basophils # (A) 0.1 k/uL (0-0.2); Basophils % (A) 1 %; Eosinophils # (A) 0.2 k/uL (0-0.7); Eosinophils % (A) 2 %; HCT 44.4 % (39.0-53.0); HGB 14.5 gm/dL (13.0-17.5); Lymphocytes # (A) 1.4 k/uL (1.0-4.8); Lymphocytes % (A) 16 %; MCH 32.8 pg (25.0-35.0); MCHC 32.7 g/dL (31.0-37.0); MCV 100.1 fL (80.0-100.0); Mean Platelet Volume 7.6; Monocytes # (A) 0.7 k/uL (0-1.0); Monocytes % (A) 8 %; Neutrophils # (A) 6.4 k/uL (1.3-7.7); Neutrophils % (A) 72 %; Platelet Count 212 k/uL (150-450); RBC 4.43 m/uL (4.30-5.90); RDW 12.3 % (11.5-15.5); WBC 8.9 k/uL (3.8-10.6)
--- NOTE | 2022-01-02 10:06 | XR ---
EXAMINATION TYPE: XR chest 2V DATE OF EXAM: 01/02/2022 COMPARISON: 09/02/2021 HISTORY: 76-year-old male with weakness TECHNIQUE: AP and lateral views FINDINGS: The cardiomediastinal silhouette, aorta, and pulmonary vasculature are within normal limits. Some str ramiro areas of atelectasis otherwise, lungs and pleural spaces are clear. IMPRESSION: No acute cardiopulmonary process.
--- NOTE | 2022-01-02 10:08 | XR ---
EXAMINATION TYPE: AP view pelvis and 2 views both hips DATE OF EXAM: 01/02/2022 COMPARISON: NONE HISTORY: 76-year-old male with pain after fall FINDINGS: SI joints appear symmetric and intact as does the pubic symphysis. Some degenerative changes of the v isualized lower lumbar spine. Enthesopathy and bony irregularity along the anterior iliac crests coul d be posttraumatic or could reflect enthesopathy such as from dish. Mild degenerative change of both hips. Osteopenia. No displaced acute fracture, subluxation, or dislocation seen. IMPRESSION: Osteopenia. Mild bilateral hip OA. No displaced fracture..
[2022-01-02 10:34] LABS: Appearance,Urine Clear (Clear); Bilirubin,Urine Negative (Negative); Blood,Urine Negative (Negative); Color,Urine Yellow; Glucose,Urine (UA) Negative (Negative); Ketones,Urine Trace (Negative); Leukocyte Esterase,Urine Negative (Negative); Nitrite,Urine Negative (Negative); PH, Urine 6.5 (5.0-8.0); Protein,Urine Negative (Negative); Urobilinogen,Urine <2.0 mg/dL (<2.0)
[2022-01-02 10:45] LABS: ALT 29 U/L (4-49); AST 33 U/L (17-59); African American GFR (CKD) >90 (>60 ml/min/1.73 sqM); Albumin 3.3 g/dL (3.5-5.0); Alkaline Phosphatase 52 U/L (38-126); Anion Gap 1 mmol/L; Blood Urea Nitrogen 16 mg/dL (9-20); Calcium 8.8 mg/dL (8.4-10.2); Carbon Dioxide 32 mmol/L (22-30); Chloride 96 mmol/L (98-107); Glucose 108 mg/dL (74-99); Magnesium 1.8 mg/dL (1.6-2.3); Non-African American GFR(CKD) >90 (>60 ml/min/1.73 sqM); Potassium 4.4 mmol/L (3.5-5.1); Sodium 129 mmol/L (137-145); Total Bilirubin 0.5 mg/dL (0.2-1.3); Total Protein 6.1 g/dL (6.3-8.2)
[2022-01-02] MEDS ORDERED: ARTIFICIAL TEARS-HYPROMELLOSE DROPS 15 ML BTL BOTH EYES PRN (10:55)
[2022-01-02] MEDS ORDERED: NEILMED SINUS RINSE EA NOSTRIL PRN (10:55)
[2022-01-02] MEDS ORDERED: KETOCONAZOLE 2% SHAMPOO 1 APPLIC/ML TOPICAL PRN (10:55)
[2022-01-02] MEDS ORDERED: MECLIZINE 25 MG TAB PO PRN (10:55)
[2022-01-02] MEDS ORDERED: NALOXONE 0.4 MG/ML 1 ML VIAL IV PRN (11:05)
[2022-01-02] MEDS ORDERED: polyethylene glycoL 3350 17 GM POWD.PACK PO PRN (11:10)
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
[2022-01-02] MEDS: SODIUM CHLORIDE 0.9% 1,000 ML IV SCH ×2 (13:02→23:24)
[2022-01-02] MEDS ORDERED: PANTOPRAZOLE 40 MG TABLET PO SCH (21:00)
[2022-01-02] MEDS ORDERED: ASPIRIN 81 MG PO SCH (21:00)
[2022-01-02] MEDS ORDERED: TAMSULOSIN 0.4 MG CAP.ER.24H PO SCH (21:00)
[2022-01-02] MEDS ORDERED: NON FORMULARY DRUG (Aspirin Ec 81 MG Tablet) PO SCH (21:00)
[2022-01-02] MEDS ORDERED: MIRTAZAPINE 15 MG TAB PO SCH (21:00)
[2022-01-02] MEDS: MELOXICAM 7.5 MG TAB PO SCH (21:25)
[2022-01-02] MEDS: DOCUSATE 100 MG CAP PO SCH (21:26)
[2022-01-02] MEDS: FAMOTIDINE 20 MG TAB PO SCH (21:26)
[2022-01-02] MEDS: buPROPion SR 100 MG TABLET.ER PO SCH (21:35)
[2022-01-03] MEDS: ACETAMINOPHEN TAB 500 MG TAB PO PRN ×2 (05:42→09:28)
[2022-01-03] MEDS ORDERED: LEVOTHYROXINE 50 MCG TAB PO SCH (06:30)
[2022-01-03] MEDS ORDERED: FINASTERIDE 5 MG TAB PO SCH (09:00)
[2022-01-03] MEDS ORDERED: ATORVASTATIN 40 MG TAB PO SCH (09:00)
[2022-01-03] MEDS ORDERED: LIDOCAINE 5% PATCH TOPICAL SCH (09:00)
[2022-01-03] MEDS ORDERED: MEGESTROL 400 MG/10 ML CUP PO SCH (09:00)
[2022-01-03] MEDS ORDERED: ENOXAPARIN 40 MG/0.4 ML SYRINGE SQ SCH (09:00)
[2022-01-03] MEDS ORDERED: LINAGLIPTIN 5 MG TABLET PO SCH (09:00)
[2022-01-03] MEDS ORDERED: atenoloL 50 MG TAB PO SCH (09:00)
[2022-01-03] MEDS ORDERED: MULTIVITAMINS, THERA 1 EACH TAB PO SCH (09:00)
[2022-01-03] MEDS: DOCUSATE 100 MG CAP PO SCH (09:07)
[2022-01-03] MEDS: MELOXICAM 7.5 MG TAB PO SCH (09:07)
[2022-01-03] MEDS: FAMOTIDINE 20 MG TAB PO SCH (09:07)
[2022-01-03] MEDS: buPROPion SR 100 MG TABLET.ER PO SCH (09:08)
[2022-01-03 10:00] LABS: African American GFR (CKD) 109.3 (60.0-200.0); Anion Gap 10.2 mmol/L (10.00-18.00); BUN/Creat Ratio 23.08 Ratio (12.00-20.00); Blood Urea Nitrogen 15.6 mg/dL (9.0-27.0); Calcium 8.9 mg/dL (8.7-10.3); Non-African American GFR(CKD) 94.3 (60.0-200.0); Potassium 4.5 mmol/L (3.5-5.5)
[2022-01-03 11:37] VITALS: BP 130/78; PULSE 86; RESP 18; TEMP 97.8
[2022-01-03] MEDS ORDERED: SIMETHICONE 80 MG CHEWABLE PO PRN (13:32)
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
[2022-01-03] MEDS ORDERED: SERTRALINE 25 MG TAB PO SCH (13:45)
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
[2022-01-03 14:23] VITALS: BMI 19.7
[2022-01-03] MEDS: SODIUM CHLORIDE 0.9% 1,000 ML IV SCH (15:18)
[2022-01-03] MEDS ORDERED: QUEtiapine 25 MG TAB PO SCH (21:00)
[2022-01-05] MEDS ORDERED: SERTRALINE 50 MG TAB PO SCH (09:00)
== END 2022-01-03 16:30 | DRG 641 ==
LOC: EC 08:42 → 5NMEDONC 11:06
PROVIDERS: ADMIT Internal Medicine; ATTEND Internal Medicine
DX: E87.1 Hypo-osmolality and hyponatremia (principal); Z68.1 Body mass index [BMI] 19.9 or less, adult; E87.3 Alkalosis; E86.1 Hypovolemia; E86.0 Dehydration; E87.70 Fluid overload, unspecified; F32.9 Major depressive disorder, single episode, unspecified; F41.1 Generalized anxiety disorder; E03.9 Hypothyroidism, unspecified; E11.9 Type 2 diabetes mellitus without complications; E78.5 Hyperlipidemia, unspecified; R63.4 Abnormal weight loss; G25.0 Essential tremor; K21.9 Gastro-esophageal reflux disease without esophagitis; M16.0 Bilateral primary osteoarthritis of hip; R63.0 Anorexia; N40.0 Benign prostatic hyperplasia without lower urinary tract symptoms; R29.6 Repeated falls; R62.7 Adult failure to thrive; Z20.822 Contact with and (suspected) exposure to COVID-19; Z79.1 Long term (current) use of non-steroidal anti-inflammatories (NSAID); Z79.82 Long term (current) use of aspirin; Z79.890 Hormone replacement therapy; Z79.899 Other long term (current) drug therapy; Z87.891 Personal history of nicotine dependence; Z88.1 Allergy status to other antibiotic agents; Z88.8 Allergy status to other drugs, medicaments and biological substances; Z91.048 Other nonmedicinal substance allergy status; Z87.828 Personal history of other (healed) physical injury and trauma; Z91.82 Personal history of military deployment; Z98.890 Other specified postprocedural states; Z91.81 History of falling
CPT/HCPCS: 36415; 71046; 73521; 80048; 80053; 81003; 82607; 83605; 83735; 84443; 84484; 85025; 85610; 85730; 87635; 93005; 96360; 99285